=== PATIENT | male | born 1945 | race Caucasian/White ===

== ENCOUNTER → 2018-04-30 09:30 | Outpatient (CLI) | payer MEDICARE, SELFPAY | PROVIDERS: PCP Internal Medicine; Visit Provider Urology | DX: C67.9 Malignant neoplasm of bladder, unspecified (principal); C68.9 Malignant neoplasm of urinary organ, unspecified | CPT/HCPCS: 51720; 99212; J9031 ==

== ENCOUNTER → 2018-05-07 09:00 | Outpatient (CLI) | payer MEDICARE, SELFPAY | PROVIDERS: PCP Internal Medicine; Visit Provider Urology | DX: C67.9 Malignant neoplasm of bladder, unspecified (principal) | CPT/HCPCS: 51701; 51720; 81003; 99212 ==

== ENCOUNTER → 2018-07-02 09:31 | Outpatient (BNVA) | payer MEDICARE, SELFPAY | PROVIDERS: PCP Internal Medicine; Visit Provider Urology | DX: C67.9 Malignant neoplasm of bladder, unspecified (principal) | CPT/HCPCS: 52000; 99212; 99213 ==

== ENCOUNTER 2018-07-11 07:30 | Day surgery (SDC) | payer MEDICARE, SELFPAY ==
[2018-07-11 07:40] VITALS: BP 116/85; PULSE 50; RESP 16; TEMP 36.6; O2SAT 94
[2018-07-11] MEDS: Lactated Ringers 1,000 ML 80 ML IV (08:09)
[2018-07-11] MEDS: Lidocaine 2% Jelly 6 ML SYR (08:42)
--- NOTE | 2018-07-11 08:55 | BLADDER_PTH ---
PATIENT: Galo So V LOC: [facility] U#:[id number] AGE/SX: 73/M ROOM: RE07/11/[address]: Ronnell Bhandari MD : [id number] BED: DIS: 07/11/2018 SPEC #: [id number] RECD: 07/11/18 12:50 STATUS: ILENE REQ #: [id number] HOLLY: 07/11/18 08:[address]: Ronnell Bhandari DEPT: Surgical Specimen RECD BY: Chinyere Hinson ENTERED: 07/11/18 12:54 SP TYPE: Bladder OTHR DR: Brian Conklin Tissues: 1 - BLADDER BIOPSY Procedures: GROSS AND MICRO LEVEL 4 Comments: [id number]
--- NOTE | 2018-07-11 09:07 | W.PM.DSUDISC ---
Discharge Plan Disposition Patient Disposition: HOME Condition: Stable Discharge Details Reason For Visit: bladder cancer Attending Provider: Ronnell Bhandari Primary Care Provider: Brian Conklin Home Meds and New Rx's Prescriptions: No Action aspirin [Aspir-81] 81 mg Tablet,Delayed Release (Dr/Ec) 81 mg PO DAILY RF: 0 multivitamin Capsule 1 cap PO DAILY RF: 0 metoprolol tartrate 25 MG tablet 25 mg PO BID RF: 0 Discharge Instructions Additional Instructions: Leave dukes catheter clamped for 1 to 2 hours then drain Mitomycin C and remove catheter Unclamp catheter sooner prn severe pain F/U with me 1 to 2 weeks for pathology results Activity:: Activity as Tolerated Diet:: As Tolerated Discharge Orders Discharge Orders: Discharge Order (Routine); Ordered 07/11/18 Ordered By: Ronnell Bhandari DS: Diagnosis Discharge Diagnosis (1) Bladder cancer: Status: Acute
[2018-07-11 10:22] VITALS: BP 140/76; PULSE 53; RESP 16; TEMP 36; O2SAT 97
--- NOTE | 2018-07-11 12:12 | ROE_ITS ---
REPORT OF OPERATIVE PROCEDURE DATE OF PROCEDURE July 11, 2018 PREOPERATIVE DIAGNOSIS Bladder cancer. POSTOPERATIVE DIAGNOSIS Bladder cancer. PROCEDURES Cystoscopy. Bladder biopsies with fulguration of bladder tumor and biopsy site. Instillation of mitomycin C into the bladder. SURGEON Ronnell Bhandari M.D. ANESTHESIA Monitored Anesthesia Care with local. COMPLICATIONS None. ESTIMATED BLOOD LOSS Minimal. HISTORY This is a 73-year-old gentleman who has a history of urothelial cell carcinoma of the bladder. On his initial resection, there was questionable involvement of the lamina propria; he was treated with int ravesical BCG. He has had recurrences of noninvasive tumor. He recently had a surveillance cystoscopy , which demonstrated a total of 4 small papillary lesions toward the right dome of the bladder. He pr esents for biopsy of these areas, fulguration and instillation of mitomycin C. OPERATIVE REPORT The patient was brought to the Operating Room on 07/11/2018. After successful induction of Monitored Anesthesia Care, he was placed in the dorsal lithotomy position. His genitalia was prepped and drap ed. A #22-Mongolian rigid cystoscope was passed through the urethra into the bladder. The urethra and bladd er were inspected with the 30--degree lens. The pendulous, bulbous, and membranous urethras appeared normal with no strictures. The prostatic ure thra showed no papillary lesions along the mucosa. The bladder neck was then entered and the bladder mucosa was inspected, both ureteral orifices appear ed normal. No bleeding was seen coming from either orifice. A total of four, less than 2-cm papillary lesions were seen on the right anterior bladder wall up tow tom the dome. Each of these areas were biopsied with a cold cup biopsy forceps. The biopsies were the n sent to pathology for permanent section. We cauterized the biopsy sites using a bipolar Bugbee. Once hemostasis had been obtained, we drained the bladder and passed a #16-Mongolian Lee catheter through the urethra into the bladder. The cathete r balloon was inflated with 10 cc of sterile water. A total of 40 mg of mitomycin C was then instille d into the bladder. The catheter was clamped. We will plan on leaving the medication in the bladder f or one to two hours before draining it and removing the catheter. He tolerated this procedure well with no complications. His ultimate treatment will depend on his steve gical pathology.
== END 2018-07-11 11:02 | disposition home or self-care (01) ==
PROVIDERS: PCP Internal Medicine; Visit Provider Urology
PROC: 0TBB8ZX Excision of Bladder, Via Natural or Artificial Opening Endoscopic, Diagnostic (ICD-10-PCS; CPT 52204; principal; 2018-07-11 09:00)
DX: C67.3 Malignant neoplasm of anterior wall of bladder (principal)
CPT/HCPCS: 51720; 52204; 88305; J0690; J1100; J1885; J2250; J2405; J3010; J9280

== ENCOUNTER → 2018-07-22 08:44 | Outpatient (BNVA) | payer MEDICARE, SELFPAY | PROVIDERS: PCP Internal Medicine; Visit Provider Urology | DX: C67.1 Malignant neoplasm of dome of bladder (principal) | CPT/HCPCS: 99213 ==

== ENCOUNTER → 2018-08-09 08:55 | Outpatient (BNVA) | payer MEDICARE, SELFPAY | PROVIDERS: PCP Internal Medicine; Visit Provider Urology | DX: C67.1 Malignant neoplasm of dome of bladder (principal) | CPT/HCPCS: 51720; 81003; 99212; J9031; J9214 ==

== ENCOUNTER → 2018-08-19 08:14 | Outpatient (BNVA) | payer MEDICARE, SELFPAY | PROVIDERS: PCP Internal Medicine; Visit Provider Urology | DX: C67.1 Malignant neoplasm of dome of bladder (principal) | CPT/HCPCS: 51720; 81003; 99212; J9031; J9214 ==

== ENCOUNTER → 2018-08-27 10:47 | Outpatient (BNVA) | payer MEDICARE, SELFPAY | PROVIDERS: PCP Internal Medicine; Visit Provider Urology | DX: C67.1 Malignant neoplasm of dome of bladder (principal) | CPT/HCPCS: 51720; 81003; 99212; 99213; J9031; J9214 ==

== ENCOUNTER 2018-08-30 01:19 | Outpatient (CLI) | payer MEDICARE, SELFPAY ==
--- NOTE | 2018-08-30 08:31 | DI.US_ITS ---
SYMPTOMS/DIAGNOSIS: CHRONIC HEPATITIS W/O MENTION OF HEPATIC COMA, B18.2 ABDOMINAL ULTRASOUND: Comparison is 10/26/17. Comparison CT scan is 05/09/17. The aorta is ectatic, but no aneurysmal dilatation is present. The IVC is unremarkable. The liver is normal in size. There is again seen a 4 x 2 cm echogenic region in the subcapsular region of the right lobe of the liver inferiorly. This corresponds to a hepatic lesion seen on the CT scan from 05/09/17, the characteristics of which are suggestive of a hepatic hemangioma. The gallbladder is negative sonographically. The common bile duct is within normal limits at 0.5 cm. The pancreas is unremarkable. There is an echogenic focus in the spleen, consistent with a calcified granuloma. This was present on the CT scan of the abdomen and pelvis from 05/09/17. The kidneys are normal in size and there are bilateral renal cysts, which appear stable. No solid renal mass or obstruction is identified. IMPRESSION: 1. Stable echogenic hepatic lesion in the right lobe of the liver , suggestive of a hepatic hemangioma. 2. Bilateral renal cysts and splenic granuloma.
== END 2018-08-30 01:39 ==
PROVIDERS: PCP Internal Medicine; Visit Provider Internal Medicine
DX: B18.2 Chronic viral hepatitis C (principal); D18.03 Hemangioma of intra-abdominal structures; N28.1 Cyst of kidney, acquired
CPT/HCPCS: 76700

== ENCOUNTER → 2018-09-03 10:43 | Outpatient (BNVA) | payer MEDICARE, SELFPAY | PROVIDERS: PCP Internal Medicine; Visit Provider Urology | DX: C67.9 Malignant neoplasm of bladder, unspecified (principal) | CPT/HCPCS: 51720; 81003; 99212; 99213; J9031; J9214 ==

== ENCOUNTER → 2018-09-10 09:45 | Outpatient (BNVA) | payer MEDICARE, SELFPAY | PROVIDERS: PCP Internal Medicine; Visit Provider Urology | DX: C67.9 Malignant neoplasm of bladder, unspecified (principal) | CPT/HCPCS: 51720; 81003; 99212; 99213; J9031; J9214 ==

== ENCOUNTER → 2018-09-23 10:32 | Outpatient (BNVA) | payer MEDICARE, SELFPAY | PROVIDERS: PCP Internal Medicine; Visit Provider Urology | DX: C67.9 Malignant neoplasm of bladder, unspecified (principal) | CPT/HCPCS: 51720; 81003; 99212; J9031; J9214 ==

== ENCOUNTER → 2018-11-05 08:38 | Outpatient (BNVA) | payer MEDICARE, SELFPAY | PROVIDERS: PCP Internal Medicine; Visit Provider Urology | DX: C67.9 Malignant neoplasm of bladder, unspecified (principal) | CPT/HCPCS: 52000; 99212; 99213 ==

== ENCOUNTER 2018-11-11 09:32 | Day surgery (SDC) | payer MEDICARE, SELFPAY ==
[2018-11-11 10:49] VITALS: BP 137/89; PULSE 57; RESP 16; TEMP 36.4; O2SAT 96
--- NOTE | 2018-11-11 13:42 | NUR.NOTE ---
Addendum entered by Shraddha Coughlin 11/11/18 13:48: Pt. ambulated from [facility] accompanied by Mariela, aware that he will be contacted regarding time to return on Sunday, November 18. Original Note: 1125: Pt. elected to leave due to anticipated wait prior to procedure. Pt. states I dont want to come here on a Sunday, there is too much going on. Pt. states he was told to arrive at 10 AM and got here at 930AM and now is being informed he was not due until 11 AM. Pt. wanted nursing to find out how long it would be before his procedure. Giulia Beasley, clinical pharmacy manager, in to speak with pt. [facility] discussed, pt. decided to take first appt. next Sunday, not an unknown time later in November. Nursing Note:
== END 2018-11-11 11:25 ==
LOC: SUR 09:33
PROVIDERS: PCP Internal Medicine; Visit Provider Urology
DX: C67.9 Malignant neoplasm of bladder, unspecified (principal); Z53.29 Procedure and treatment not carried out because of patient's decision for other reasons; Y66 Nonadministration of surgical and medical care

== ENCOUNTER 2018-11-18 08:35 | Day surgery (SDC) | payer MEDICARE, SELFPAY ==
[2018-11-18 08:58] VITALS: BP 129/84; PULSE 50; RESP 18; TEMP 35.7; O2SAT 97
[2018-11-18] MEDS: Lactated Ringers 1,000 ML 80 ML IV (09:26)
[2018-11-18] MEDS: Lidocaine 2% Jelly 6 ML SYR (10:13)
--- NOTE | 2018-11-18 10:18 | BLADDER_PTH ---
PATIENT: Galo So V LOC: [facility] U#:[id number] AGE/SX: 73/M ROOM: RE11/18/[address]: Ronnell Bhandari MD : [id number] BED: DIS: 11/18/2018 SPEC #: [id number] RECD: 11/18/18 12:46 STATUS: ILENE REQ #: [id number] HOLLY: 11/18/18 10:[address]: Ronnell Bhandari DEPT: Surgical Specimen RECD BY: Chinyere Hinson ENTERED: 11/18/18 12:47 SP TYPE: Bladder OTHR DR: Brian Conklin Tissues: 1 - BLADDER BIOPSY Procedures: GROSS AND MICRO LEVEL 4 Comments: [id number]
--- NOTE | 2018-11-18 10:34 | W.PM.DSUDISC ---
Discharge Plan Disposition Patient Disposition: HOME Condition: Stable Discharge Details Reason For Visit: BLADDER CA Attending Provider: Ronnell Bhandari Primary Care Provider: Brian Conklin Home Meds and New Rx's Prescriptions: No Action phenazopyridine [Pyridium] 200 mg tablet 200 mg PO TID PRN (Reason: pain) Qty: 10 RF: 0 aspirin [Aspir-81] 81 mg Tablet,Delayed Release (Dr/Ec) 81 mg PO DAILY RF: 0 multivitamin Capsule 1 cap PO DAILY RF: 0 metoprolol tartrate 25 MG tablet 25 mg PO BID RF: 0 Discharge Instructions Additional Instructions: F/U 1 to 2 weeks for results - we will decide on addition treatment at that time Activity:: Activity as Tolerated Diet:: As Tolerated Discharge Orders Discharge Orders: Discharge Order (Routine); Ordered 11/18/18 Ordered By: Ronnell Bhandari
[2018-11-18] MEDS: Phenazopyridine 200 MG TAB PO (11:12)
[2018-11-18 11:13] VITALS: BP 124/84; PULSE 50; RESP 18; TEMP 35.4; O2SAT 94
[2018-11-18 11:45] VITALS: BP 135/83; PULSE 46; RESP 18; TEMP 35.7; O2SAT 98
--- NOTE | 2018-11-18 14:22 | ROE_ITS ---
DATE OF PROCEDURE: November 18, 2018 PREOPERATIVE DIAGNOSIS: Bladder tumor. POSTOPERATIVE DIAGNOSIS: Same. PROCEDURE: Cystoscopy, bladder biopsy with cauterization of biopsy site. SURGEON: Ronnell Bhandari M.D. ANESTHESIA: General with local. COMPLICATIONS: None. ESTIMATED BLOOD LOSS: Minimal. HISTORY: This is a 73-year-old gentleman who has a history of urothelial cell carcinoma of the bladd er. At his most recent surveillance cystoscopy, he was found to have a papillary lesion up towards t he dome on the bladder. This lesion measures less than a centimeter across. He presents today for r emoval of the lesion for pathology studies. OPERATIVE REPORT: The patient was brought to the Operating Room on 11/18/18. After successful induct ion of general anesthesia, he was placed in the dorsal lithotomy position. His genitalia was prepped and draped. 2% Xylocaine jelly was instilled into the urethra to act as a local anesthetic. A 22 Kazakh rigid cystoscope was passed through the urethra into the bladder. The urethra and bladde r were inspected with both the 30 and the 70-degree lens. The pendulous, bulbous and membranous urethras appeared normal. The prostatic urethra showed some la teral lobe enlargement. The bladder neck was entered. There was a scar on the left trigone from his previous resection site. No papillary lesions were see n in this area. The only visible lesion was up on the left posterior bladder wall near the dome. This lesion measure d less than a centimeter in largest dimension and appeared papillary. We were able to remove the lesion in its entirety using a cold cup biopsy forceps. We then cauterize d the underlying area with a bipolar Bugbee. The biopsy was sent to Pathology for permanent section. The patient tolerated this procedure well with no complications. His bladder was drained. His cysto scope was withdrawn. cc: Brian Conklin M.D.
== END 2018-11-18 12:02 | disposition home or self-care (01) ==
PROVIDERS: PCP Internal Medicine; Visit Provider Urology
PROC: 0TBB8ZZ Excision of Bladder, Via Natural or Artificial Opening Endoscopic (ICD-10-PCS; CPT 52234; principal; 2018-11-18 10:00)
DX: C67.1 Malignant neoplasm of dome of bladder (principal)
CPT/HCPCS: 52234; 88305; J0690

== ENCOUNTER → 2018-12-06 08:27 | Outpatient (BNVA) | payer MEDICARE, SELFPAY | PROVIDERS: PCP Internal Medicine; Visit Provider Urology | DX: C67.1 Malignant neoplasm of dome of bladder (principal); Z71.2 Person consulting for explanation of examination or test findings | CPT/HCPCS: 99213 ==

== ENCOUNTER 2018-12-11 12:31 | Outpatient (REF) | payer MEDICARE, SELFPAY ==
[2018-12-11 21:27] LABS: BUN 21 mg/dL (7-18)
== END 2018-12-11 12:51 ==
LOC: NCHCN 12:31
PROVIDERS: PCP Internal Medicine; Visit Provider Internal Medicine
DX: I10 Essential (primary) hypertension (principal); E78.00 Pure hypercholesterolemia, unspecified
CPT/HCPCS: 84520; 82565

== ENCOUNTER 2018-12-17 00:29 | Outpatient (CLI) | payer MEDICARE, SELFPAY ==
[2018-12-17] MEDS: Normal Saline Flush 10 ML SYR IVP (10:17)
[2018-12-17] MEDS: Omnipaque 350 MG/ML 100 ML BTL IJ (10:17)
--- NOTE | 2018-12-17 10:25 | DI.CT_ITS ---
SYMPTOMS/DIAGNOSIS: BLADDER CA, ? UPPER TRACT DISEASE, C67.[address]: CT examination of the abdomen and pelvis was performed utilizing CT urogram protocol. Images obtained through the lung bases show an approximately 6 mm in diameter well circumscribed left lower lobe laterally located intrapulmonary nodule, this is probably unchanged from CT of 05/09/17. Otherwise the lung bases are clear. Note is again made of multiple low attenuation peripherally enhancing hepatic lesions consistent with hepatic hemangiomas. Splenic calcified granulomas are noted. The pancreas is unremarkable in appearance. No biliary dilatation seen. The abdominal aorta is of normal diameter and no major vascular abnormality is identified. No significant abdominal wall hernia seen. No significant abdominal or pelvic adenopathy identified. There are multiple bilateral renal cysts with no solid renal lesion identified by CT criteria. No evidence of urinary tract obstruction or calcification. Mild bladder wall thickening is noted which is nonspecific. The appendix appears normal and there is no evidence of diverticulitis or bowel obstruction. CONCLUSION: Essentially negative CT urogram in a patient with a history of treated bladder carcinoma.
== END 2018-12-17 00:49 ==
PROVIDERS: PCP Internal Medicine; Visit Provider Urology
DX: C67.1 Malignant neoplasm of dome of bladder (principal); R91.1 Solitary pulmonary nodule; D18.03 Hemangioma of intra-abdominal structures
CPT/HCPCS: 36415; 51720; 81003; 99213; J9031; 74178; 82565; J3490; J9214

== ENCOUNTER → 2018-12-24 08:57 | Outpatient (BNVA) | payer MEDICARE, SELFPAY | PROVIDERS: PCP Internal Medicine; Visit Provider Urology | DX: C67.1 Malignant neoplasm of dome of bladder (principal); R30.0 Dysuria | CPT/HCPCS: 51720; 81003; 99212; J9031; J9214 ==

== ENCOUNTER → 2018-12-31 08:36 | Outpatient (BNVA) | payer MEDICARE, SELFPAY | PROVIDERS: PCP Internal Medicine; Visit Provider Urology | DX: C67.1 Malignant neoplasm of dome of bladder (principal) | CPT/HCPCS: 51720; 81003; 99212; J9031; J9214 ==

== ENCOUNTER → 2019-01-07 08:03 | Outpatient (BNVA) | payer MEDICARE, SELFPAY | PROVIDERS: PCP Internal Medicine; Visit Provider Urology | DX: C67.1 Malignant neoplasm of dome of bladder (principal) | CPT/HCPCS: 51720; 81003; 99212; J9031; J9214 ==

== ENCOUNTER → 2019-01-13 08:29 | Outpatient (BNVA) | payer MEDICARE, SELFPAY | PROVIDERS: PCP Internal Medicine; Visit Provider Urology | DX: C67.9 Malignant neoplasm of bladder, unspecified (principal); R30.0 Dysuria | CPT/HCPCS: 51720; 81003; 99213; J9031 ==

== ENCOUNTER → 2019-01-21 08:01 | Outpatient (BNVA) | payer MEDICARE, SELFPAY | PROVIDERS: PCP Internal Medicine; Visit Provider Urology | DX: C67.1 Malignant neoplasm of dome of bladder (principal) | CPT/HCPCS: 51720; 81003; 99212; J9214 ==

== ENCOUNTER 2019-01-23 08:02 | Outpatient (CLI) | payer MEDICARE, SELFPAY ==
--- NOTE | 2019-01-23 09:52 | DI.RAD_ITS ---
SYMPTOMS/DIAGNOSIS: CHEST WALL PAIN, R07.89, H/O BLADDER CA, Z85.51 CHEST AND LEFT RIBS: PA and lateral views of the chest and four additional views of the left ribs were obtained. A marker is placed over the anterolateral lower left ribs. There appear to be changes of COPD. No pleural effusion. No consolidation. No pneumothorax. The cardiac size is within normal limits. On single oblique view there is a question of nondisplaced fracture of the anterior most aspect of the left eighth rib. This corresponds to the BB marker placement. CONCLUSION: Question nondisplaced fracture anterior aspect of left eighth rib. No pneumothorax or hemothorax.
== END 2019-01-23 08:22 ==
PROVIDERS: PCP Internal Medicine; Visit Provider Internal Medicine
DX: R07.89 Other chest pain (principal); Z85.51 Personal history of malignant neoplasm of bladder; J44.9 Chronic obstructive pulmonary disease, unspecified; I48.0 Paroxysmal atrial fibrillation; R00.2 Palpitations
CPT/HCPCS: 71101; 99214

== ENCOUNTER 2019-01-23 11:26 | Outpatient (CLI) | payer MEDICARE, SELFPAY ==
--- NOTE | 2019-02-13 10:47 | ZIOP_ITS ---
ZIO PATCH MONITORING DEVICE DATE OF DICTATION February 13, 2019 INDICATION Paroxysmal atrial fibrillation. Analysis time - 13 days and 5 hours. Predominant underlying rhythm is sinus rhythm. Average heart rate 65 beats per minute. Minimum heart rate 37 beats per minute. Max heart rate 203 beats per minute. 2 bursts of SVT with the fastest lasting 5 beats with a max rate of 203 beats per minute. Intermittent episodes of ectopic atrial rhythm/atrial tachycardia. Isolated atrial ectopy was frequent accounting for 11.3% of total beats. No atrial fibrillation detected. Occasional isolated ventricular ectopy accounting for 4.1% of total beats. No nonsustained VT. No significant pauses or nick arrhythmias. 4 patient triggered events correspond to sinus rhythm with intermittent ectopic atrial rhythm. 2 diary entries of lightheadedness/dizziness correspond to sinus rhythm with frequent atrial ectopy and intermittent atrial tachycardia. Overall sinus rhythm with frequent intermittent ectopic atrial rhythm/atrial tachycardia. No atrial fibrillation detected. Marlo Romero M.D. ALIA/mayo T-02/13/19
== END 2019-01-23 11:46 ==
PROVIDERS: PCP Internal Medicine; Visit Provider Internal Medicine Cardiovascular Disease
DX: I48.92 Unspecified atrial flutter (principal); I47.1 Supraventricular tachycardia; I49.1 Atrial premature depolarization; R00.2 Palpitations; I48.0 Paroxysmal atrial fibrillation; R07.89 Other chest pain; Z85.51 Personal history of malignant neoplasm of bladder; J44.9 Chronic obstructive pulmonary disease, unspecified
CPT/HCPCS: 0296T; 71101; 99214; 93005; 93010

== ENCOUNTER 2019-02-13 08:31 | Outpatient (CLI) | payer MEDICARE, SELFPAY | END 2019-02-13 08:51 | PROVIDERS: PCP Internal Medicine; Referring Provider Internal Medicine; Visit Provider Internal Medicine Cardiovascular Disease | DX: I48.92 Unspecified atrial flutter (principal); I47.1 Supraventricular tachycardia; I49.1 Atrial premature depolarization | CPT/HCPCS: 0298T ==

== ENCOUNTER → 2019-03-04 09:01 | Outpatient (BNVA) | payer MEDICARE, SELFPAY | PROVIDERS: PCP Internal Medicine; Visit Provider Urology | DX: C67.1 Malignant neoplasm of dome of bladder (principal) | CPT/HCPCS: 52000; 99213 ==

== ENCOUNTER → 2019-04-15 13:37 | Outpatient (BNVA) | payer MEDICARE, SELFPAY | PROVIDERS: PCP Internal Medicine; Visit Provider Urology | DX: C67.1 Malignant neoplasm of dome of bladder | CPT/HCPCS: 51720; 81003; 99212; J9031; J9214 ==

== ENCOUNTER → 2019-04-22 08:40 | Outpatient (BNVA) | payer MEDICARE, SELFPAY | PROVIDERS: PCP Internal Medicine; Visit Provider Urology | DX: C67.1 Malignant neoplasm of dome of bladder (principal) | CPT/HCPCS: 51720; 81003; 99212; J9031; J9214 ==

== ENCOUNTER → 2019-05-01 09:18 | Outpatient (BNVA) | payer MEDICARE, SELFPAY | PROVIDERS: PCP Internal Medicine; Visit Provider Urology | DX: C67.9 Malignant neoplasm of bladder, unspecified (principal) | CPT/HCPCS: 51720; 81003; 99212; J9031; J9214 ==

== ENCOUNTER → 2019-05-08 09:02 | Outpatient (BNVA) | payer MEDICARE, SELFPAY | PROVIDERS: PCP Internal Medicine; Visit Provider Internal Medicine Cardiovascular Disease | DX: I47.1 Supraventricular tachycardia (principal); I48.0 Paroxysmal atrial fibrillation | CPT/HCPCS: 99213 ==

== ENCOUNTER → 2019-06-17 12:48 | Outpatient (BNVA) | payer MEDICARE, SELFPAY | PROVIDERS: PCP Internal Medicine; Visit Provider Urology | DX: C67.1 Malignant neoplasm of dome of bladder (principal) | CPT/HCPCS: 52000; 99212 ==

== ENCOUNTER 2019-06-30 10:13 | Outpatient (REF) | payer MEDICARE, SELFPAY ==
[2019-06-30 14:53] LABS: CREATININE 1.02 mg/dL (0.70-1.30)
== END 2019-06-30 10:33 ==
LOC: NCHCN 10:13
PROVIDERS: PCP Internal Medicine; Visit Provider Internal Medicine
DX: Z13.89 Encounter for screening for other disorder (principal); Z01.812 Encounter for preprocedural laboratory examination; R69 Illness, unspecified
CPT/HCPCS: 82565

== ENCOUNTER 2019-07-02 01:24 | Outpatient (CLI) | payer MEDICARE, SELFPAY ==
--- NOTE | 2019-07-02 14:50 | DI.CT_ITS ---
EXAM: CT CHEST W CLINICAL HISTORY: PULMONARY NODULE LT LOWER LOBE, R91.1. TECHNIQUE: After IV contrast COMPARISON: CT ABDOMEN PELVIS WO/W from 12/17/2018 XR ribs LT PA chest 3V from 01/23/2019 XR ribs LT PA chest 3V from 01/23/2019 FINDINGS: The exam is mildly limited by respiratory motion. The heart size is normal. There are atherosclero tic changes at the aortic arch. There is no aortic aneurysm or dissection. Coronary artery calcific ations are seen. Emphysematous changes are seen at the lung apices. There is also scarring at the lung apices, right greater than left. The nodule seen on the previous CT scan at the lateral left arslan ng base is unchanged in size at 6 millimeters. No pleural or pericardial effusions or infiltrates are seen. There is no evidence of adenopathy. Liver lesions consistent with hemangiomas are again noted. There are bilateral renal cysts. No susp icious bony abnormalities are seen. IMPRESSION: Stable 6 millimeter nodule at the left lung base.
== END 2019-07-02 01:44 ==
PROVIDERS: PCP Internal Medicine; Visit Provider Internal Medicine
DX: R91.1 Solitary pulmonary nodule (principal); J98.4 Other disorders of lung
CPT/HCPCS: 71260

== ENCOUNTER 2019-07-10 00:37 | Outpatient (CLI) | payer MEDICARE, SELFPAY ==
--- NOTE | 2019-07-10 13:23 | DI.US_ITS ---
EXAM: US HERNIA CLINICAL HISTORY: RT INGUINAL HERNIA, K40.90 TECHNIQUE: Ultrasound performed using standard protocol. COMPARISON: CT ABDOMEN PELVIS WO/W from 12/17/2018 FINDINGS: Bowel is seen herniating into the right inguinal canal which is reducible. No mass or fluid collect ion is seen. IMPRESSION: Reducible small right inguinal hernia.
== END 2019-07-10 00:57 ==
PROVIDERS: PCP Internal Medicine; Visit Provider Specialist/Technologist Athletic Trainer
DX: K40.90 Unilateral inguinal hernia, without obstruction or gangrene, not specified as recurrent (principal)
CPT/HCPCS: 76857

== ENCOUNTER → 2019-07-17 12:44 | Outpatient (BNVA) | payer MEDICARE, SELFPAY | PROVIDERS: PCP Internal Medicine; Referring Provider Internal Medicine; Visit Provider Surgery | DX: K40.90 Unilateral inguinal hernia, without obstruction or gangrene, not specified as recurrent (principal) | CPT/HCPCS: 99204; 99215 ==

== ENCOUNTER 2019-07-22 08:46 | Day surgery (SDC) | payer MEDICARE, SELFPAY ==
[2019-07-22 09:16] VITALS: BP 135/75; PULSE 48; RESP 16; TEMP 36.3; O2SAT 97
[2019-07-22] MEDS: Lactated Ringers 1,000 ML 80 ML IV (09:33)
--- NOTE | 2019-07-22 10:51 | PDOC.DSDIS_ITS ---
Discharge Plan Disposition Patient Disposition: HOME Condition: Good Discharge Details Reason For Visit: (R) INGUINAL HERNIA Attending Provider: Pattie Hannah Primary Care Provider: Brian Conklin Home Meds and New Rx's Prescriptions: New hydrocodone-acetaminophen 5-325 mg Tablet 1 - 2 tab PO Q6H PRN (Reason: Pain) Qty: 15 RF: 0 Continued cannabidiol (CBD) extract 100 mg/mL solution PO PRNRF: 0 multivitamin,tx-minerals Tablet 1 tab PO DAILY RF: 0 metoprolol succinate 25 mg tablet extended release 24 hr 25 mg PO BID RF: 0 aspirin [Aspir-81] 81 mg Tablet,Delayed Release (Dr/Ec) 81 mg PO DAILY RF: 0 Discharge Instructions Additional Instructions: The top bandage can be removed tomorrow. The steri strips will usually stick for about a week. When the edges start to curl up, they can be removed. It is okay to shower tomorrow, the water can run over the steri strips Do not swim or soak in a tub for two weeks Call for any concerns including fever, increased pain, vomiting, incision redness or drainage. Do not lift more than 15 pounds for four weeks. Walking and stairs are fine. Do not drive if on narcotic pain meds or if limited by pain. May use Tylenol alternating with ibuprofen for pain control. Ice is also an option. The maximum dose for Tylenol is 4000 mg/day. May use ibuprofen 800 mg every 8 hours as needed. If concerned about constipation, you may use a stool softener or milk of magnesi a. Referrals: Pattie Hannah MD [ [facility] STAFF PHYSICIAN] - (Return in 10 - 14 days for a postop visit) Activity:: Do not lift more than 15 pounds Remove Dressings/Wound Care:: 24 hours Shower/Bathe:: 24 hours Diet:: As Tolerated Discharge Orders Discharge Orders: Discharge Order (Routine); Ordered 07/22/19 Ordered By: Pattie Hannah DS: Diagnosis Discharge Diagnosis (1) Right inguinal hernia: Status: Acute
[2019-07-22] MEDS: ceFAZolin 2 GM/50 ML BAG IVPB (11:24)
[2019-07-22] MEDS: Bupivacaine 0.25% Pres-Free 30 ML VIAL (11:32)
[2019-07-22] MEDS: Bupivacaine LIPOSOME/PF 133 MG/10 ML VIAL IJ (12:35)
[2019-07-22 13:10] VITALS: PULSE 47; RESP 14; O2SAT 97
[2019-07-22 13:29] VITALS: BP 164/84; PULSE 47; RESP 16; TEMP 36.3; O2SAT 99
--- NOTE | 2019-07-22 16:32 | ROE_ITS ---
DATE OF PROCEDURE: July 22, 2019 PREOPERATIVE DIAGNOSIS: Right inguinal hernia. POSTOPERATIVE DIAGNOSIS: Right direct and indirect inguinal hernia. PROCEDURE: Right inguinal hernia repair with mesh. SURGEON: Pattie Hannah M.D. INSURANCE PROFESSIONAL: Cornelia Carlos ANESTHESIA: Local and general. INDICATIONS: This is a 74-year-old man who recently noted right groin pain with a visible bulge. On examination he has a reducible moderate-sized right inguinal hernia. PROCEDURE: The patient was placed supine on the operating table and his right groin was prepped and draped sterilely. The ASIS and pubic tubercle were identified and a transverse incision made between these two points after injecting local anesthetic. Subcutaneous tissue was divided with cautery. Any encountered veins were clamped, divided and ligated with #3-0 Vicryl ties. Local anesthetic was injected underneath the external oblique fascia and then a small incision made with a knife. This was extended bluntly through the external ring and laterally as well. The spermatic cord was encircled at the level of the pubic tubercle with a Dipak drain. I did identify and avoid the iliohypogastric nerve. The patient was noted to have a small direct hernia. The transversus abdominis muscle was reapproximated with interrupted #2-0 Prolene stitches to keep the hernia reduced. I then examined the spermatic cord and identified a moderate-sized inguinal hernia. The sac was dissected free of the spermatic cord up to the level of the internal ring. The sac was opened and then suture ligated at its base with a #2-0 silk stitch. The excess sac was amputated. The amputated portion retracted nicely up into the abdomen. A small mesh plug was sutured into the internal ring with interrupted #2-0 Prolene stitches and then a flat sheet of mesh placed on the floor of the inguinal canal in standard Alireza fashion. This was done using a #2-0 Prolene stitch. The external oblique fascia was closed with #3-0 Vicryl sutures. I used 20 cc's of Exparel at this point and injected 1 cc intermittently starting at the pubic tubercle and extending upwards into the plane where the cutaneous nerves traveled. The subcutaneous tissue was reapproximated with interrupted #3-0 Vicryl sutures and then the skin closed with a running #4-0 Monocryl subcuticular stitch. He tolerated the procedure well and was stable to recovery. cc: Brian Conklin M.D.
== END 2019-07-22 14:03 | disposition home or self-care (01) ==
PROVIDERS: PCP Internal Medicine; Visit Provider Surgery
PROC: (CPT 49505; principal; 2019-07-22 10:45)
DX: K40.90 Unilateral inguinal hernia, without obstruction or gangrene, not specified as recurrent (principal); I10 Essential (primary) hypertension
CPT/HCPCS: 49505; C1781; J0690; J2001; J2250; J3010

== ENCOUNTER → 2019-08-07 09:15 | Outpatient (BNVA) | payer MEDICARE, SELFPAY | PROVIDERS: PCP Internal Medicine; Referring Provider Internal Medicine; Visit Provider Surgery | DX: Z48.89 Encounter for other specified surgical aftercare (principal) ==

== ENCOUNTER 2019-09-18 09:16 | Outpatient (CLI) | payer MEDICARE, SELFPAY | END 2019-09-18 09:36 | PROVIDERS: PCP Internal Medicine; Visit Provider Internal Medicine Cardiovascular Disease | DX: I48.0 Paroxysmal atrial fibrillation (principal); I47.1 Supraventricular tachycardia; I10 Essential (primary) hypertension | CPT/HCPCS: 99203; 99214; 93005; 93010 ==

== ENCOUNTER → 2019-09-26 09:21 | Outpatient (BNVA) | payer MEDICARE, SELFPAY | PROVIDERS: PCP Internal Medicine; Referring Provider Internal Medicine; Visit Provider Urology | DX: C67.1 Malignant neoplasm of dome of bladder (principal) | CPT/HCPCS: 52000; 99212 ==

== ENCOUNTER → 2019-10-24 08:40 | Outpatient (BNVA) | payer MEDICARE, SELFPAY | PROVIDERS: PCP Internal Medicine; Referring Provider Internal Medicine; Visit Provider Internal Medicine Cardiovascular Disease | DX: I47.1 Supraventricular tachycardia (principal); I10 Essential (primary) hypertension; R01.1 Cardiac murmur, unspecified | CPT/HCPCS: 99214 ==

== ENCOUNTER 2019-10-27 10:07 | Outpatient (REF) | payer MEDICARE, SELFPAY ==
[2019-10-27 12:22] LABS: HCT 44.3 % (40.0-50.0); HGB 14.6 g/dL (13.5-17.5); Mean Corpuscular Hemoglobin 27.8 pg (27.0-33.0); Mean Corpuscular Volume 84.2 fL (80-95); Mean Platelet Volume 10.4 fL (8.0-11.0); Platelet Count 283 x1000/uL (130-400); RBC 5.26 m/cumm (4.50-6.00); RBC Distribution Width 13.8 % (11.8-14.1); White Blood Cell Count 6.62 k/cumm (4.4-10.8)
[2019-10-27 12:53] LABS: ALT 30 U/L (16-63); AST 25 U/L (15-37); Albumin 4.2 g/dL (3.4-5.0); Alkaline Phosphatase 36 U/L (46-116); Anion Gap 7.2 mmol/L (3-11); BUN 24 mg/dL (7-18); Bilirubin, Total 0.5 mg/dL (0.2-1.0); CO2 28.8 mmol/L (21.0-32.0); CREATININE 1.06 mg/dL (0.70-1.30); Calcium 9.2 mg/dL (8.5-10.1); Chloride 105 mmol/L (98-107); Glucose 98 mg/dL (74-106); Lipase 100 U/L (73-393); Potassium 4.8 mmol/L (3.5-5.1); Sodium 141 mmol/L (136-145); TSH (W/Ref FT4) 1.76 uIU/mL (0.36-3.74)
== END 2019-10-27 10:27 ==
LOC: NCHCN 10:07
PROVIDERS: PCP Internal Medicine; Visit Provider Internal Medicine
DX: R63.4 Abnormal weight loss (principal); R10.9 Unspecified abdominal pain; R53.83 Other fatigue
CPT/HCPCS: 80053; 83690; 85027; 84443

== ENCOUNTER 2019-11-07 03:48 | Outpatient (CLI) | payer MEDICARE, SELFPAY ==
--- NOTE | 2019-11-07 | DI.US_ITS ---
EXAM: US ABDOMEN CLINICAL HISTORY: ABD PAIN, WT LOSS, CHRONIC HEP C W/O MENTION OF HEPATIC COMA, R10.9, R63.4, B18.2 TECHNIQUE: Ultrasound abdomen performed using standard protocol. COMPARISON: US ABDOMEN from 08/30/2018 CT ABDOMEN PELVIS WO/W from 12/17/2018 US HERNIA from 07/10/2019 FINDINGS: LIVER: There is a 3.8 x 3.2 x 3.1 cm mass in the inferior aspect of the right lobe of the liver. This corresponds to the finding seen on the CT scan and prior ultrasounds consistent with a hepatic heman gioma. Liver is normal in size. There is hepatopetal flow through the portal vein. GALLBLADDER: No evidence of cholelithiasis. No evidence of wall thickening. No pericholecystic fluid identified. KIDNEYS: Kidneys are symmetric in size. No evidence of renal calculi. No evidence of hydronephrosis. Bilateral simple renal cysts. BILIARY SYSTEM: Common bile duct measures 5 mm. No intrahepatic biliary ductal dilation. SRIVASTAVA'S SIGN: Negative. PANCREAS: Normal where visualized. SPLEEN: Not enlarged. ABDOMINAL AORTA AND IVC: Visualized portions normal caliber. ASCITES: None seen. IMPRESSION: 1. Stable hepatic lesion in the inferior aspect of the right lobe. Finding is most consistent with a hepatic hemangioma. 2. Bilateral simple renal cysts.
== END 2019-11-07 04:08 ==
PROVIDERS: PCP Internal Medicine; Visit Provider Internal Medicine
DX: M10.9 Gout, unspecified (principal); R63.4 Abnormal weight loss; B18.2 Chronic viral hepatitis C; N28.1 Cyst of kidney, acquired; D18.03 Hemangioma of intra-abdominal structures
CPT/HCPCS: 51720; 81003; 99212; J9201; 76700

== ENCOUNTER 2019-11-16 01:31 | Outpatient (CLI) | payer MEDICARE, SELFPAY ==
--- NOTE | 2019-11-16 10:30 | DI.US_ITS ---
APPROVED REPORT EXAM: Comprehensive 2D, Doppler, and color-flow Echocardiogram Patient Location: Out-Patient Milk Processing Worker: Carlie Boston RDCS (AE) Indications: Tachycardia,Dyspnea Conclusion Left Ventricle : The left ventricle is normal size. The left ventricular systolic function is normal . There is normal left ventricular wall thickness. There is normal LV segmental wall motion. Diasto lic function is indeterminate. LVEF is 55-59%. Right Ventricle : The right ventricle is normal size. The right ventricular systolic function is norm al. Atria : The left atrium size is normal. The right atrium size is normal. Aortic Valve : Aortic valve is calcified. Aortic valve is probably trileaflet. Mild aortic stenosis. Mild aortic regurgitation. Mitral Valve : The mitral valve is normal in structure. There is mitral annular calcification. No loree dence of mitral valve stenosis. Mild mitral regurgitation. Tricuspid Valve : The tricuspid valve is normal in structure. Mild tricuspid regurgitation. Great Vessels : IVC is normal in size and collapses >50% with inspiration. Estimated RVSP is 20-25 m mHg. There is no prior echocardiogram available for comparison. Wall motion Left Ventricle The left ventricle is normal size. The left ventricular systolic function is normal. There is normal left ventricular wall thickness. There is normal LV segmental wall motion. Diastolic function is inde terminate. LVEF is 55-59%. Right Ventricle The right ventricle is normal size. The right ventricular systolic function is normal. Atria The left atrium size is normal. The right atrium size is normal. Aortic Valve Aortic valve is calcified. Aortic valve is probably trileaflet. Mild aortic stenosis. Mild aortic reg urgitation. Mitral Valve The mitral valve is normal in structure. There is mitral annular calcification. No evidence of mitral valve stenosis. Mild mitral regurgitation. Tricuspid Valve The tricuspid valve is normal in structure. Mild tricuspid regurgitation. Pulmonic Valve Pulmonic valve is not well visualized. There is no pulmonic valvular stenosis. Trace pulmonic regurgi tation. Great Vessels The aortic root is normal in size. The ascending aorta is normal in size. IVC is normal in size and c ollapses >50% with inspiration. Estimated RVSP is 20-25 mmHg. Pericardium There is no pericardial effusion. 2D Dimensions IVSD d PLAX 0.94 cm M: 0.6-1.2 LV Vol A2C d MOD 126.4 mL LVPW d PLAX 0.99 cm M: 0.6 - 1.2 LV Vol A4C d MOD 88.0 mL LVID d PLAX 4.85 cm M: 4.2 - 5.8 LA vol/ BSA A2C s A-L 43.8 mL/m2 LVDs 3.35 cm M: 2.5 - 4.0 LA vol/ BSA A4C s A-L 36.1 mL/m2 Ao Root d 3.42 cm M: 3.1 - 3.7 LA Vol/ BSA Biplane s A-L 41.1 mL/m2 Ao Asc Diam d 2.89 cm M: 2.6 - 3.4 LA Area A4C s MOD 20.72 cm2 LV EF Teichholz 57.1 % LA Area A2C s MOD 23.55 cm2 LVEF (Casey's) 55.39 % M: 52 - 72 LV EF A4C MOD 56.4 % LV Volume 83.28 mL M: 62 - 150 LV EF A2C MOD 57.0 % LV Volume Index 48.13 mL/m2 M: 34 - 74 LV EF Biplane MOD 55.4 % LV Vol Biplane MOD 105.7 mL FS 29.95 % LV Diastology MV E' medial 0.042 (>0.07 m/s) E/A Ratio 1.3 LV E/e MED 20.05 (<14) MV E Vmax 0.84 (0.4-1.3 m/s) MV E' lateral 0.095 (>0.1 m/s) MV A Vmax 0.65 (0.4-1.3 m/s) LV E/e LAT 8.85 (<14) MV E/A Ratio 1.22 MV E/E' medial 20.06 MV E/E' lateral 8.89 Aortic Valve LVOT Area 2.41 cm2 AoV Area Vmax 1.10 cm2 LVOT Vmax 1.19 m/s AoV Area/ BSA (Vmax) 0.63 cm2/m2 LVOT Mean Silvino. 0.77 m/s EDION Mean Silvino. 1.01 cm2 LVOT Peak Grad 5.6 mmHg DEION Mean Silvino. Index 0.58 cm2/m2 LVOT Mean Grad 2.8 mmHg AR DT 2968 msec LVOT VTI 0.305 m AR PHT 861 msec LVOT Diam s 1.75 cm (M/F) 1.5-2.5 AoV Vmax 2.59 (0.5-1.3 m/s) Velocity Ratio 0.45 AoV Mean Silvino. 1.83 m/s AoV Peak Grad 26.9 mmHg LVOT SV 73.49 mL AoV Mean Grad 14.8 (<5 mmHg) AoV VTI 0.568 (0.18-0.25 m) AoV Area VTI 1.29 (2.5-4.5 cm2) AoV Area/ BSA (VTI) 0.74 cm/m2 Mitral Valve MV DT 263 (160-240 msec) MR Vmax 5.20 m/s MV PHT 76 msec MR VTI 2.163 m MV Area PHT 2.88 cm2 MR Peak Grad 108.3 mmHg MV VTI 0.348 m MR Mean Grad 74.8 mmHg MV Area VTI 2.11 (4.0-6.0 cm2) Pulmonary Valve PV Vmax 1.12 (0.5-1.5 m/s) PV Peak Grad 5.1 mmHg PV Mean Grad 2.8 mmHg PV VTI 0.207 m Tricuspid Valve TR Peak Grad 20.5 mmHg TR Vmax 2.27 m/s RA Pressure 3.00 mmHg
== END 2019-11-16 01:51 ==
PROVIDERS: PCP Internal Medicine; Visit Provider Internal Medicine Cardiovascular Disease
DX: R00.0 Tachycardia, unspecified (principal); R06.00 Dyspnea, unspecified; I08.3 Combined rheumatic disorders of mitral, aortic and tricuspid valves
CPT/HCPCS: 93306

== ENCOUNTER 2019-11-17 00:14 | Outpatient (CLI) | payer MEDICARE, SELFPAY ==
--- NOTE | 2019-11-17 12:45 | ETT_ITS ---
APPROVED REPORT Exam: Exercise Treadmill Patient Location: Out-Patient Room/Bed: Stress Nurse: Haven Chavez RN BMI: 19.08 Baseline Rhythm: Sinus Bradycardia Indications: Other dyspnea. Other fatigue. Medical History Medical History: HTN, Hyperlipidemia Cardiac Medications: Metoprololol. Aspirin., Allergies: Doxycyline Cardiac Risk Factors: HTN, Hyperlipidemia, Smoking marijuanna, SOB Pretest Chest Pain Characteristics: Dyspnea Exercise History: Physically active Lung Sounds: Clear to auscultation Heart Sounds: Murmur Stress Test Details Test: Exercise stress testing was performed using a Dieter protocol. Rest Stress HR Resting HR Supine: 54 bpm Max Heart Rate (APMHR): 145 bpm Resting HR Standin bpm Target HR (85% APMHR): 123 bpm Max HR Achieved: 152 bpm % of APMHR: 104 Recovery HR: 72 bpm BP Resting BP Supine: 182/84 mmHg Resting BP Standin/80 mmHg Max BP: 184/100 mmHg Recovery BP: 144/62 mmHg BP response to stress: Normal blood pressure response to stress. ECG Resting ECG: Sinus Bradycardia Stress ECG: Sinus Tachycardia ST Change: No significant ST segment changes Recovery ECG: Sinus Rhythm Recovery ST Change: No significant ST segment changes Recovery Arrhythmia: APC Comment: Frequent APCs at recovery, subsided by 10 minutes recovery time. Clinical Reason for Termination: 104 % of Target HR Achieved Exercise duration: 4 min01 sec Highest Stage Reached: Stage 1: 1.7 mph at 10% grade. Exercise capacity: 5.84 METs Functional Capacity: Moderately diminished capacity Scale: Active Stress ECG Conclusion 1. The patient exercised for 4 minutes (6 METS) 2. There were no symptoms of ischemia with stress. Testing was stopped due to target heart rate bein g achieved. Rate-pressure product was 25,000. 3. There is no evidence of ischemia on the ECG portion of the exam. There were frequent premature at rial contractions during recovery. 4. The Graves Score ( 4) estimates an annual cardiovascular mortality of 1% and a five year survival of 94%. Using the Graves Score there is an intermediate probability of angiographic coronary disease. Protocol Used: Dieter Protocol Stress Test Summary STAGE Time (mins) Speed (mph) Grade (%) HR BP SYMPTOMS METS Supine 54 182/84 Standing 57 170/80 1 3 1.7 10 130 166/78 4.6 2 6 2.5 12 141 7 1 min recovery 141 184/100 3 min recovery 72 170/80 6 min recovery 96 144/62 9 min recovery 66 140/82
== END 2019-11-17 00:34 ==
PROVIDERS: PCP Internal Medicine; Visit Provider Internal Medicine Cardiovascular Disease
DX: R06.09 Other forms of dyspnea (principal); R53.83 Other fatigue; I10 Essential (primary) hypertension; E78.5 Hyperlipidemia, unspecified; R06.02 Shortness of breath
CPT/HCPCS: 93016; 93018; 93017

== ENCOUNTER → 2019-12-26 10:14 | Outpatient (BNVA) | payer MEDICARE, SELFPAY | PROVIDERS: PCP Internal Medicine; Referring Provider Internal Medicine; Visit Provider Urology | DX: C67.1 Malignant neoplasm of dome of bladder (principal) | CPT/HCPCS: 52000; 81003; 99212 ==

== ENCOUNTER 2019-12-26 10:48 | Outpatient (REF) | payer MEDICARE, SELFPAY ==
--- NOTE | 2019-12-26 10:30 | PAPNONF_PTH ---
PATIENT: Galo So V LOC: [facility] U#:[id number] AGE/SX: 74/M ROOM: RE12/26/[address]: Ronnell Bhandari MD : 1945 BED: DIS: 12/26/2019 SPEC #: [id number] RECD: 12/26/19 12:45 STATUS: ILENE REQ #: [id number] HOLLY: 12/26/19 10:[address]: Ronnell Bhandari DEPT: [facility] Cytology RECD BY: Chinyere Hinson ENTERED: 12/26/19 12:45 SP TYPE: PAPJENNF SAVANNAH DR: Brian Conklin Tissues: 1 - BODY FLUID CYTO(SPUTUM/URINE)[facility] Procedures: BODY FLUID CYTO(URINE/SPUTUM) Comments: [id number] (TOTAL VOLUME = 60 ml's) (30 ml's URINE & 30 ml's CYTOLYT ADDED IN 2 CONTAINERS)
== END 2019-12-26 11:08 ==
LOC: LBN 10:48
PROVIDERS: PCP Internal Medicine; Visit Provider Urology
DX: R82.89 Other abnormal findings on cytological and histological examination of urine (principal); R35.0 Frequency of micturition; Z85.51 Personal history of malignant neoplasm of bladder
CPT/HCPCS: 88104

== ENCOUNTER → 2020-02-13 14:05 | Outpatient (BNVA) | payer MEDICARE, SELFPAY | PROVIDERS: PCP Internal Medicine; Referring Provider Internal Medicine; Visit Provider Urology | DX: C67.1 Malignant neoplasm of dome of bladder (principal); R35.0 Frequency of micturition | CPT/HCPCS: 51720; 81003; 99213; J9201 ==

== ENCOUNTER → 2020-04-06 10:50 | Outpatient (BNVA) | payer MEDICARE, SELFPAY | PROVIDERS: PCP Internal Medicine; Referring Provider Internal Medicine; Visit Provider Urology | DX: C67.1 Malignant neoplasm of dome of bladder (principal) | CPT/HCPCS: 52000; 99213 ==

== ENCOUNTER → 2020-04-08 10:00 | Outpatient (BNVA) | payer MEDICARE, SELFPAY | PROVIDERS: PCP Internal Medicine; Referring Provider Internal Medicine; Visit Provider Nurse Practitioner Adult Health | DX: G56.01 Carpal tunnel syndrome, right upper limb (principal); G56.21 Lesion of ulnar nerve, right upper limb | CPT/HCPCS: 95908; 99203; 99214 ==

== ENCOUNTER → 2020-04-15 09:35 | Outpatient (BNVA) | payer MEDICARE, SELFPAY | PROVIDERS: PCP Internal Medicine; Referring Provider Internal Medicine; Visit Provider Internal Medicine Cardiovascular Disease | DX: I48.0 Paroxysmal atrial fibrillation (principal); I08.0 Rheumatic disorders of both mitral and aortic valves; R01.1 Cardiac murmur, unspecified; I10 Essential (primary) hypertension | CPT/HCPCS: 99214 ==

== ENCOUNTER → 2020-05-18 13:42 | Outpatient (BNVA) | payer MEDICARE, SELFPAY | PROVIDERS: PCP Internal Medicine; Referring Provider Internal Medicine; Visit Provider Urology | DX: C67.1 Malignant neoplasm of dome of bladder (principal); I10 Essential (primary) hypertension | CPT/HCPCS: 51720; 81003; 99213; J9214 ==

== ENCOUNTER → 2020-08-03 10:31 | Outpatient (BNVA) | payer MEDICARE, SELFPAY | PROVIDERS: PCP Internal Medicine; Referring Provider Internal Medicine; Visit Provider Urology | DX: C67.1 Malignant neoplasm of dome of bladder (principal); I10 Essential (primary) hypertension | CPT/HCPCS: 52000; 81003; 99213 ==

== ENCOUNTER 2020-08-26 02:26 | Outpatient (CLI) | payer MEDICARE, SELFPAY ==
[2020-08-28 16:36] LABS: COVID-19 RT-PCR Result NEGATIVE (Negative)
== END 2020-08-26 02:46 ==
PROVIDERS: PCP Internal Medicine; Visit Provider Urology
DX: Z11.59 Encounter for screening for other viral diseases (principal); Z01.818 Encounter for other preprocedural examination
CPT/HCPCS: U0003

== ENCOUNTER 2020-08-30 10:26 | Day surgery (SDC) | payer MEDICARE, SELFPAY ==
--- NOTE | 2020-08-30 07:54 | W.PM.HP.N ---
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 He has had bladder instillations with BCG plus alpha interferon. His most recent surveillance cystoscopy showed a small recurrance. He presents for cystoscopy with TURBT. Review of Systems Narrative: No fevers or chills No vision change or dysphasia No diabetes or thyroid No shortness of breath, cough or hemoptysis No chest pain or palpitations No nausea, vomiting, hepatitis, ulcers, jaundice, diarrhea or constipation No seizures, strokes or peripheral neuropathy No bleeding disorders or anemia No gout PFSH Medical History (Updated 08/30/20 @ 10:49 by Shraddha Coughlin) Abdominal pain in male Anxiety with depression Atrial ectopic tachycardia Bladder cancer Chronic hepatitis C pt. denies this stated he had it treated 5 years ago, and is no longer detectable. Cubital tunnel syndrome on right Degenerative joint disease Ear deformity, acquired Fatigue History of degenerative joint disease Hx of bladder cancer Hx of supraventricular tachycardia Hypercholesterolemia Hypertension Left lower lobe pulmonary nodule pt. questions this Paroxysmal A-fib 07/22/19: Pt denies dx. -BR Pulmonary nodule Right carpal tunnel syndrome Shoulder pain Weight loss Surgical History H/O transurethral destruction of bladder lesion History of colonoscopy History of tonsillectomy S/P right inguinal hernia repair Social History Smoking/Tobacco Use Status: Former Tobacco Use Quit Date: 09/24/79 Smoking risk assessment performed?: Yes Alcohol Intake: current Alcohol type: beer Drug use: Daily Substance use type: marijuana Details: no alcohol for 4 months. Marijuana: t-1, vaped Current gender identity: male What type of physical activity do you participate in: walking Duration: 15-30 minutes/day Frequency: 3-4 times per week Do you feel safe at home: Yes Do you feel safe in your relationship?: Yes Meds Home Medications and Allergies Home Medications Medication Instructions Recorded Confirmed Type aspirin [Aspir-81] 81 mg PO DAILY 07/08/18 08/30/20 History cannabidiol 100 mg/mL oral solution 60 mg PO DAILY ml 01/23/19 08/30/20 History multivitamin,tx-minerals 1 tab PO DAILY 07/09/19 08/30/20 History metoprolol succinate 25 mg 25 mg PO BID tab 09/18/19 08/30/20 History tablet,extended release 24 hr sertraline 50 mg tablet 50 mg PO DAILY 10/24/19 08/30/20 History Allergies Allergy/AdvReac Type Severity Reaction Status Date / Time doxycycline AdvReac Intermediate Nausea Verified 08/30/20 10:45 Exam Const General: cooperative, healthy appearing and no acute distress Neck Neck: supple Resp Auscultation: clear to auscultation bilaterally Cardio Rate: regular rate Rhythm: regular rhythm GI Palpation: soft and no masses Neuro General: patient alert and patient oriented x3 COVID-19 Screening Have you, or household traveled for leisure in last 14 days?: No Had IN PERSON contact w/suspected or confirmed C-19 person: No
[2020-08-30 10:51] VITALS: BP 142/102; PULSE 87; RESP 16; TEMP 35.9; O2SAT 97
[2020-08-30] MEDS: Lactated Ringers 1,000 ML 80 ML IV (11:10)
[2020-08-30] MEDS: ceFAZolin 1 GM/50 ML BAG IVPB (15:21)
[2020-08-30] MEDS: Lidocaine 2% Jelly 6 ML SYR (15:30)
--- NOTE | 2020-08-30 15:45 | BLADDER_PTH ---
PATIENT: Galo So V LOC: [facility] U#:[id number] AGE/SX: 75/M ROOM: RE08/30/[address]: Ronnell Bhandari MD : 1945 BED: DIS: 08/30/2020 SPEC #: [id number] RECD: 08/30/20 18:17 STATUS: ILENE REQ #: [id number] HOLLY: 08/30/20 15:[address]: Ronnell Bhandari DEPT: Surgical Specimen RECD BY: Chinyere Hinson ENTERED: 08/30/20 18:18 SP TYPE: Bladder OTHR DR: Brian Conklin Tissues: 1 - BLADDER BIOPSY Procedures: GROSS AND MICRO LEVEL 4 Comments: [id number]
--- NOTE | 2020-08-30 15:47 | W.PM.DSUDISC ---
Discharge Plan Disposition Patient Disposition: HOME Condition: Stable Discharge Details Attending Provider: Ronnell Bhandari Primary Care Provider: Brian Conklin Home Meds and New Rx's Prescriptions: No Action sertraline 50 mg tablet 50 mg PO DAILY RF: 0 cannabidiol 100 mg/mL solution 60 mg PO DAILY RF: 0 metoprolol succinate 25 mg tablet extended release 24 hr 25 mg PO BID RF: 0 multivitamin,tx-minerals Tablet 1 tab PO DAILY RF: 0 aspirin [Aspir-81] 81 mg Tablet,Delayed Release (Dr/Ec) 81 mg PO DAILY RF: 0 Discharge Instructions Additional Instructions: Lee to legbag Follow up 2 to 3 days for catheter removal Followup to review pathology 7 to 14 days Activity:: Activity as Tolerated Shower/Bathe:: 24 hours Diet:: As Tolerated Discharge Orders Discharge Orders: Discharge Order (Routine); Ordered 08/30/20 Ordered By: Ronnell Bhandari DS: Diagnosis Discharge Diagnosis (1) Bladder cancer: Status: Acute
--- NOTE | 2020-08-30 15:51 | W.PM.OP ---
Date of service: 08/30/20 Time of Service: 15:51 Operative Note Operative Note DATE OF PROCEDURE: 08/30/20 PRE-OP DIAGNOSIS: Bladder tumor POST-OP DIAGNOSIS: same SURGEON: Ronnell Bhandari ANESTHESIA: other (General without intubation) ESTIMATED BLOOD LOSS: 5 PATHOLOGY: other (bladder tumor) COMPLICATIONS: None Patient was transported to: same day Patient's condition: stable Implants: 16 serbian dukes with 10 cc in balloon Indications: Recurrent bladder tumor Findings: 2 cm papillary tumor right anterior bladder wall Procedure Description: The patient was brought to the operating room on 08/30/2020. After successful induction of general anesthesia without intubation, he was placed in the dorsal lithotomy position. His genitalia was prepped and draped. 2% Xylocaine jelly was instilled into the urethra to act as a local anesthetic. A 26 [place] resectoscope sheath was passed through the urethra into the bladder. The 30 degree lens and visual obturator were utilized to inspect the urethral and prostatic urethra mucosa. The pendulous, bulbous and membranous urethra was appeared normal with no strictures. The prostatic urethra showed some lateral lobe enlargement but no papillary lesions. Once the bladder was entered, we identified the previously seen 2 cm papillary lesion at the right anterior bladder wall. We then used an Locish resectoscope to remove this area and cauterized the surrounding mucosa. The resected tissue was evacuated and sent to pathology for permanent section. The bladder was then filled with irrigant. A 16 [place] Dukes catheter was passed through the urethra into the bladder. The catheter balloon was inflated with 10 cc of sterile water and the catheter was hooked to gravity drainage. The patient tolerated this procedure well. He was taken back to the day surgery unit in stable condition.
[2020-08-30] MEDS: Phenazopyridine 200 MG TAB PO (16:33)
[2020-08-30 16:40] VITALS: BP 151/77; PULSE 70; RESP 16; TEMP 36.3; O2SAT 97
== END 2020-08-30 17:30 | disposition home or self-care (01) ==
PROVIDERS: PCP Internal Medicine; Visit Provider Urology
PROC: 0TBB8ZZ Excision of Bladder, Via Natural or Artificial Opening Endoscopic (ICD-10-PCS; CPT 52234; principal; 2020-08-30 12:30)
DX: N32.89 Other specified disorders of bladder (principal); C67.1 Malignant neoplasm of dome of bladder
CPT/HCPCS: 52234; 88305; NC; J0690; J2001

== ENCOUNTER → 2020-09-21 14:49 | Outpatient (BNVA) | payer MEDICARE, SELFPAY | PROVIDERS: PCP Internal Medicine; Referring Provider Internal Medicine; Visit Provider Urology | DX: C67.1 Malignant neoplasm of dome of bladder (principal) | CPT/HCPCS: 99212 ==

== ENCOUNTER → 2020-10-19 11:24 | Outpatient (BNVA) | payer MEDICARE, SELFPAY | PROVIDERS: PCP Internal Medicine; Referring Provider Internal Medicine; Visit Provider Internal Medicine Cardiovascular Disease | DX: R00.1 Bradycardia, unspecified (principal); I48.0 Paroxysmal atrial fibrillation; I47.1 Supraventricular tachycardia; I08.0 Rheumatic disorders of both mitral and aortic valves; J44.9 Chronic obstructive pulmonary disease, unspecified; I10 Essential (primary) hypertension; Z87.891 Personal history of nicotine dependence | CPT/HCPCS: 99214; 99443 ==

== ENCOUNTER → 2020-10-22 08:52 | Outpatient (BNVA) | payer MEDICARE, SELFPAY | PROVIDERS: PCP Internal Medicine; Referring Provider Internal Medicine; Visit Provider Urology | DX: C67.1 Malignant neoplasm of dome of bladder (principal) | CPT/HCPCS: 51720; 81003; 99212; J9031; J9214 ==

== ENCOUNTER → 2020-12-10 11:12 | Outpatient (BNVA) | payer MEDICARE, SELFPAY | PROVIDERS: PCP Internal Medicine; Referring Provider Internal Medicine; Visit Provider Urology | DX: R00.1 Bradycardia, unspecified (principal); C67.1 Malignant neoplasm of dome of bladder | CPT/HCPCS: 52000; 81003; 99212; 99215 ==

== ENCOUNTER 2020-12-30 00:45 | Outpatient (CLI) | payer MEDICARE, SELFPAY ==
--- NOTE | 2020-12-30 | DI.US_ITS ---
EXAM: US ABDOMEN CLINICAL HISTORY: F/U HEP C,B18.2 TECHNIQUE: Ultrasound abdomen performed using standard protocol. COMPARISON: CT CT ABDOMEN PELVIS WO/W from 12/17/[address] ABDOMEN PELVIS WO/W from 12/17/2018 US US ABDOMEN from 11/07/2019 FINDINGS: LIVER: Normal size and echogenicity. Stable hyperechoic area measuring 4 cm in greatest dimension in the anterior right lobe of the liver, peripherally. Additional 2 centimeter hyperechoic lesion post eriorly in the right lobe. A 3rd lesion seen on previous CT adjacent to the gallbladder is not well depicted on the current exam but appears grossly unchanged in size at 18 millimeters. GALLBLADDER: No evidence of cholelithiasis. No evidence of wall thickening. No pericholecystic fluid identified. SRIVASTAVA'S SIGN: Negative. BILIARY SYSTEM: No intrahepatic or extrahepatic biliary ductal dilation. KIDNEYS: Kidneys are symmetric in size. No evidence of renal calculi. No evidence of hydronephrosis. Several small bilateral cysts are identified. PANCREAS: Normal where visualized. SPLEEN: Not enlarged. Incidental calcifications. ABDOMINAL AORTA AND IVC: Visualized portions normal caliber. ASCITES: None seen. IMPRESSION: Stable appearance of hyperechoic liver lesions, consistent with angiomas. Overall normal liver echog enicity and size. DATA REPOSITORY:
== END 2020-12-30 01:05 ==
PROVIDERS: PCP Internal Medicine; Visit Provider Internal Medicine
DX: B18.2 Chronic viral hepatitis C (principal); R93.2 Abnormal findings on diagnostic imaging of liver and biliary tract; R00.1 Bradycardia, unspecified
CPT/HCPCS: 93246; 76700

== ENCOUNTER 2020-12-30 02:16 | Outpatient (CLI) | payer MEDICARE, SELFPAY ==
--- NOTE | 2021-01-21 08:38 | W.ZIOMONITOR ---
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 Average heart rate was 70, minimum was 39, maximum 143. There were rare to occasional ventricular ectopic beats There were frequent atrial premature beats, 13% of total There were multiple self-limited atrial runs, supraventricular tachycardia. The longest of these lasted 48 beats. Patient symptoms did not correspond to any dysrhythmia There was no atrial fibrillation, no high-grade AV block, no pauses greater than 3 seconds
== END 2020-12-30 02:17 | disposition home or self-care (01) ==
LOC: RT 02:16
PROVIDERS: PCP Internal Medicine; Visit Provider Internal Medicine
DX: R00.1 Bradycardia, unspecified (principal)
CPT/HCPCS: 93246

== ENCOUNTER 2021-01-21 08:38 | Outpatient (CLI) | payer MEDICARE, SELFPAY | END 2021-01-21 08:39 | LOC: CARDO 01-25 08:53 | PROVIDERS: PCP Internal Medicine; Referring Provider Internal Medicine; Visit Provider Internal Medicine Cardiovascular Disease | DX: R00.1 Bradycardia, unspecified (principal); I49.3 Ventricular premature depolarization; I49.1 Atrial premature depolarization; I47.1 Supraventricular tachycardia | CPT/HCPCS: 93248 ==

== ENCOUNTER → 2021-01-24 12:42 | Outpatient (BNVA) | payer MEDICARE, SELFPAY | PROVIDERS: PCP Internal Medicine; Referring Provider Internal Medicine; Visit Provider Urology | DX: C67.1 Malignant neoplasm of dome of bladder (principal) | CPT/HCPCS: 51720; 81003; 99212; J9030; J9214 ==

== ENCOUNTER → 2021-03-03 12:37 | Outpatient (BNVA) | payer MEDICARE, SELFPAY | PROVIDERS: PCP Internal Medicine; Referring Provider Internal Medicine; Visit Provider Urology | DX: C67.1 Malignant neoplasm of dome of bladder (principal) | CPT/HCPCS: 52000; 81003; 99213 ==

== ENCOUNTER 2021-03-03 13:47 | Outpatient (REF) | payer MEDICARE, SELFPAY ==
--- NOTE | 2021-03-03 13:00 | PAPNONF_PTH ---
PATIENT: Galo So V LOC: [facility]AREN U#:[id number] AGE/SX: 75/M ROOM: RE03/03/[address]: Ronnell Bhandari MD : 1945 BED: DIS: 03/03/2021 SPEC #: [id number] RECD: 03/03/21 17:32 STATUS: ILENE REQ #: [id number] HOLLY: 03/03/21 13:[address]: Ronnell Bhandari DEPT: [facility] Cytology RECD BY: Chinyere Hinson ENTERED: 03/03/21 17:34 SP TYPE: SHARMAINE NUÑEZ DR: Brian Conklin Tissues: 1 - BODY FLUID CYTO(SPUTUM/URINE)[facility] Procedures: BODY FLUID CYTO(URINE/SPUTUM) Comments: [id number] (TOTAL VOLUME = 40 ml's) (40 ml's URINE & 40 ml's CYTOLYT ADDED)
== END 2021-03-03 13:48 | disposition home or self-care (01) ==
LOC: LBN 13:47
PROVIDERS: PCP Internal Medicine; Visit Provider Urology
DX: C67.1 Malignant neoplasm of dome of bladder (principal); R82.89 Other abnormal findings on cytological and histological examination of urine
CPT/HCPCS: 88104

== ENCOUNTER 2021-03-22 20:48 | Outpatient (REF) | payer MEDICARE, SELFPAY ==
[2021-03-22 22:06] LABS: Abs Immature Grans 0.03 10^3/uL (0.0-0.06); Absolute Basophil Count 0.04 10^3/uL (0.0-0.2); Absolute Eosinophil Count 0.05 10^3/uL (0.0-0.7); Absolute Lymphocyte Count 1.71 10^3/uL (1.2-3.4); Absolute Monocyte Count 0.85 10^3/uL (0.1-0.8); Absolute Neutrophil Count 5.05 10^3/uL (1.2-6.7); Basophils % 0.5; Eosinophils % 0.6; HCT 42.1 % (40.0-50.0); HGB 13.7 g/dL (13.5-17.5); Immature Grans % 0.4; Lymphocytes % 22.1; MCH 27.4 pg (27.0-33.0); MCHC 32.5 % (32.0-36.0); MCV 84.2 fL (80-95); MPV 10.6 fL (8.0-11.0); Neutrophils % 65.4; Nucleated RBC 0 %; Platelet Count 258 10^3/uL (130-400); RDW 14.2 % (11.8-14.1); RDW-SD 43.7 fL; WBC 7.73 10^3/uL (4.4-10.8)
[2021-03-22 23:25] LABS: ALT 29 U/L (16-63); AST 26 U/L (15-37); Albumin 4.6 g/dL (3.4-5.0); Alkaline Phosphatase 45 U/L (46-116); Anion Gap 9.3 mmol/L (3-11); BUN 23 mg/dL (7-18); Bilirubin, Total 0.5 mg/dL (0.2-1.0); CO2 28.7 mmol/L (21.0-32.0); Calcium 9.5 mg/dL (8.5-10.1); Chloride 103 mmol/L (98-107); Glucose 98 mg/dL (74-106); Potassium 4.8 mmol/L (3.5-5.1); Sodium 141 mmol/L (136-145); Total Protein 7.6 g/dL (6.4-8.2); Vitamin B12 559 pg/mL (193-986)
[2021-03-22 23:48] LABS: NT-proBNP 241 pg/mL (<300)
== END 2021-03-22 20:49 | disposition home or self-care (01) ==
LOC: NCHCN 20:48
PROVIDERS: PCP Internal Medicine; Visit Provider Internal Medicine
DX: R53.83 Other fatigue (principal); R63.4 Abnormal weight loss
CPT/HCPCS: 80053; 82607; 83880; 84443; 85025

== ENCOUNTER → 2021-04-15 08:28 | Outpatient (BNVA) | payer MEDICARE, SELFPAY | PROVIDERS: PCP Internal Medicine; Referring Provider Internal Medicine; Visit Provider Urology | DX: C67.1 Malignant neoplasm of dome of bladder (principal) | CPT/HCPCS: 51720; 81003; 99213; J9030; J9031; J9214 ==

== ENCOUNTER → 2021-04-29 11:46 | Outpatient (BNVA) | payer MEDICARE, SELFPAY | PROVIDERS: PCP Internal Medicine; Referring Provider Internal Medicine; Visit Provider Internal Medicine Cardiovascular Disease | DX: I47.1 Supraventricular tachycardia (principal); J44.9 Chronic obstructive pulmonary disease, unspecified; I08.0 Rheumatic disorders of both mitral and aortic valves; I10 Essential (primary) hypertension; Z79.899 Other long term (current) drug therapy | CPT/HCPCS: 99214; 99213 ==

== ENCOUNTER → 2021-05-27 13:05 | Outpatient (BNVA) | payer MEDICARE, SELFPAY | PROVIDERS: PCP Internal Medicine; Referring Provider Internal Medicine; Visit Provider Urology | DX: C67.1 Malignant neoplasm of dome of bladder (principal) | CPT/HCPCS: 52000; 81003 ==

== ENCOUNTER 2021-05-27 14:06 | Outpatient (REF) | payer MEDICARE, SELFPAY ==
--- NOTE | 2021-05-27 13:30 | PAPNONF_PTH ---
PATIENT: Galo So V LOC: [facility] U#:[id number] AGE/SX: 75/M ROOM: RE05/27/[address]: Ronnell Bhandari MD : 1945 BED: DIS: 05/27/2021 SPEC #: [id number] RECD: 05/27/21 15:09 STATUS: ILENE REQ #: [id number] HOLLY: 05/27/21 13:[address]: Ronnell Bhandari [facility] RECD BY: Jana Albrecht ENTERED: 05/27/21 15:14 SP TYPE: SHARMAINE NUÑEZ DR: Brian Conklin Tissues: 1 - BODY FLUID CYTO(SPUTUM/URINE)[facility] Procedures: BODY FLUID CYTO(URINE/SPUTUM) Comments: [id number] (TOTAL VOLUME = 124 cc) (62cc URINE & 62 cc CYTOLYT ADDED)
== END 2021-05-27 14:07 | disposition home or self-care (01) ==
LOC: LBN 14:06
PROVIDERS: PCP Internal Medicine; Visit Provider Urology
DX: Z85.51 Personal history of malignant neoplasm of bladder (principal)
CPT/HCPCS: 88104

== ENCOUNTER → 2021-07-12 12:36 | Outpatient (BNVA) | payer MEDICARE, SELFPAY | PROVIDERS: PCP Internal Medicine; Referring Provider Internal Medicine; Visit Provider Urology | DX: C67.1 Malignant neoplasm of dome of bladder (principal); Z51.11 Encounter for antineoplastic chemotherapy | CPT/HCPCS: 51720; J9030; J9214 ==

== ENCOUNTER → 2021-08-30 12:34 | Outpatient (BNVA) | payer MEDICARE, SELFPAY | PROVIDERS: PCP Internal Medicine; Referring Provider Internal Medicine; Visit Provider Urology | DX: C67.1 Malignant neoplasm of dome of bladder (principal) | CPT/HCPCS: 52000; 81003 ==

== ENCOUNTER → 2022-01-27 10:27 | Outpatient (BNVA) | payer MEDICARE, SELFPAY | PROVIDERS: PCP Internal Medicine; Referring Provider Internal Medicine; Visit Provider Internal Medicine Cardiovascular Disease | DX: I48.0 Paroxysmal atrial fibrillation (principal); I47.1 Supraventricular tachycardia; R00.1 Bradycardia, unspecified; I35.0 Nonrheumatic aortic (valve) stenosis | CPT/HCPCS: 99214 ==

== ENCOUNTER 2022-03-03 02:02 | Outpatient (CLI) | payer MEDICARE, SELFPAY ==
--- NOTE | 2022-05-01 12:39 | W.CARDEVENT ---
Date of service: 05/01/22 Time of Service: 12:39 Cardiac Event Recorder Referring Provider:: Brian Conklin Indications:: Atrial fibrillation Cardiac Event Note: This is a 14-day cardiac event monitor, ordered for atrial fibrillation Predominant rhythm was sinus with an average heart rate of 76. Minimum was 51, maximum 152 There were rare ventricular ectopic beats There were frequent atrial premature beats comprising 25% of total. There were 2 episodes of supraventricular tachycardia that lasted 30 seconds to 2 minutes, consistent with paroxysmal atrial fibrillation rate 1 50-1 70. These were asymptomatic Patient's symptoms were reported that generally appeared to correspond to premature atrial contractions
== END 2022-03-03 02:03 | disposition home or self-care (01) ==
LOC: RT 02:03
PROVIDERS: PCP Internal Medicine; Visit Provider Internal Medicine
DX: C67.1 Malignant neoplasm of dome of bladder (principal); I48.91 Unspecified atrial fibrillation
CPT/HCPCS: 52000; 81003; 93246

== ENCOUNTER 2022-03-03 13:42 | Outpatient (REF) | payer MEDICARE, SELFPAY ==
--- NOTE | 2022-03-03 13:00 | PAPNONF_PTH ---
PATIENT: Galo So V LOC: KAREN U#:[id number] AGE/SX: 76/M ROOM: RE03/03/[address]: Ronnell Bhandari MD : 1945 BED: DIS: 03/03/2022 SPEC #: [id number] RECD: 03/03/22 17:36 STATUS: ILENE REQ #: [id number] HOLLY: 03/03/22 13:[address]: Ronnell Bhandari DEPT: [facility] Cytology RECD BY: Chinyere Hinson ENTERED: 03/03/22 17:36 SP TYPE: SHARMAINE NUÑEZ DR: Brian Conklin Tissues: 1 - BODY FLUID CYTO(SPUTUM/URINE)[facility] Procedures: BODY FLUID CYTO(URINE/SPUTUM) Comments: [id number] (TOTAL VOLUME = 80 ml) (40 ml URINE & 40 ml CYTOLYT ADDED IN 2 CONTAINERS)
== END 2022-03-03 13:43 | disposition home or self-care (01) ==
LOC: LBN 13:42
PROVIDERS: PCP Internal Medicine; Visit Provider Urology
DX: Z85.51 Personal history of malignant neoplasm of bladder (principal)
CPT/HCPCS: 88104

== ENCOUNTER → 2022-03-28 01:05 | Outpatient (CLI) | payer MEDICARE, SELFPAY ==
--- NOTE | 2022-03-28 10:30 | DI.US_ITS ---
APPROVED REPORT EXAM: Comprehensive 2D, Doppler, and color-flow Echocardiogram Patient Location: Out-Patient Penology Professor: Carlie Boston RDCS (AE) Indications: Paroxysmal atrial fibrillation, Murmur, Tachycardia Other Information Study Quality: Adequate Conclusion Normal left ventricular wall thickness and chamber size. Estimated ejection fraction is 60%. Wall m otion is normal Normal right ventricular size and systolic function Both atria are normal in size Aortic valve is calcified and probably trileaflet. There is no aortic stenosis. There is mild aorti c regurgitation Moderate mitral annular calcification with mild mitral regurgitation Normal tricuspid valve with trace regurgitation. Estimated right ventricular systolic pressure is 25 mmHg Patient was in sinus rhythm with atrial premature beats throughout the study Wall motion Left Ventricle The left ventricle is normal size. The left ventricular systolic function is normal. The left ventric ular ejection fraction is within the normal range. There is normal left ventricular wall thickness. T here is normal LV segmental wall motion. There is no ventricular septal defect visualized. LVEF is 60 %. Right Ventricle The right ventricle is normal size. The right ventricular systolic function is normal. The RVSP is 25 .3mmHg. Atria The left atrium size is normal. The right atrium size is normal. The interatrial septum is intact wit h no evidence for an atrial septal defect. Aortic Valve Aortic valve is calcified. Aortic valve is probably trileaflet. No hemodynamically significant valvul ar aortic stenosis. Mild aortic regurgitation. Mitral Valve Moderate mitral annular calcification. No evidence of mitral valve stenosis. Mild mitral regurgitatio n. Tricuspid Valve The tricuspid valve is normal in structure. There is no tricuspid valve stenosis. Trace tricuspid reg urgitation. Pulmonic Valve The pulmonary valve is normal in structure. There is no pulmonic valvular stenosis. Trace pulmonic re gurgitation. Great Vessels The aortic root is normal in size. Ascending aorta is not well visualized. Aortic arch is normal in c aliber. IVC is normal in size and collapses >50% with inspiration. Pericardium There is no pericardial effusion. 2D Dimensions IVSD d PLAX 0.95 cm M: 0.6-1.2 LV Vol A2C d MOD 115.7 mL LVPW d PLAX 0.97 cm M: 0.6 - 1.2 LV Vol A4C d MOD 107.7 mL LVID d PLAX 4.72 cm M: 4.2 - 5.8 LA vol/ BSA A2C s A-L 28.7 mL/m2 LVDs 3.05 cm M: 2.5 - 4.0 LA vol/ BSA A4C s A-L 12.4 mL/m2 Ao Root d 3.20 cm M: 3.1 - 3.7 LA Vol/ BSA Biplane s A-L 21.2 mL/m2 RA Area A4C 13.91 cm2 LA Area A4C s MOD 10.14 cm2 RA Vol/ BSA A4C s A-L 20.6 mL/m2 LA Area A2C s MOD 17.39 cm2 LV EF Teichholz 64.6 % LV EF A4C MOD 60.4 % LVEF (Casey's) 59.31 % M: 52 - 72 LV EF A2C MOD 61.1 % LV Volume 89.48 mL M: 62 - 150 LV EF Biplane MOD 59.3 % LV Volume Index 52.32 mL/m2 M: 34 - 74 SV 67.05 mL LV Vol Biplane MOD 113.1 mL SV Index 39.09 mL/m2 FS 35.25 % M-Mode TAPSE 2.15 cm (M/F) >1.7 LV Diastology MV E' medial 0.070 (>0.07 m/s) E/A Ratio 1.4 LV E/e MED 13.70 (<14) MV E Vmax 0.96 (0.4-1.3 m/s) MV E' lateral 0.056 (>0.1 m/s) MV A Vmax 0.70 (0.4-1.3 m/s) LV E/e LAT 17.00 (<14) MV E/A Ratio 1.29 MV E/E' medial 13.73 MV E/E' lateral 17.02 Aortic Valve LVOT Area 2.75 cm2 AoV Area Vmax 1.58 cm2 LVOT Vmax 1.23 m/s AoV Area/ BSA (Vmax) 0.92 cm2/m2 LVOT Mean Silvino. 0.79 m/s DEION Mean Silvino. 1.41 cm2 LVOT Peak Grad 6.0 mmHg DEION Mean Silvino. Index 0.82 cm2/m2 LVOT Mean Grad 3.0 mmHg AR DT 3491 msec LVOT VTI 0.266 m AR PHT 1012 msec LVOT Diam s 1.85 cm AoV Vmax 2.13 m/s Velocity Ratio 0.57 AoV Mean Silvino. 1.54 m/s AoV Peak Grad 18.2 mmHg LVOT SV 73.18 mL AoV Mean Grad 10.6 mmHg AoV VTI 0.411 m AoV Area VTI 1.78 cm2 AoV Area/ BSA (VTI) 1.04 cm/m2 Mitral Valve MV DT 263 (160-240 msec) MV PHT 76 msec MV Area PHT 2.89 cm2 MV VTI 0.284 m MV Area VTI 2.57 (4.0-6.0 cm2) Pulmonary Valve PV Vmax 1.14 (0.5-1.5 m/s) RVOT Peak Gr. 1.31 mmHg PV Peak Grad 5.2 mmHg RVOT Mean Gr. 0.65 mmHg PV Mean Grad 2.9 mmHg RVOT VTI 0.119 m PV VTI 0.258 m RVOT Vmax 0.57 m/s Tricuspid Valve TR Peak Grad 22.2 mmHg TR Vmax 2.36 m/s RA Pressure 3.00 mmHg RVSP (TR) 25.3 mmHg
== END ==
PROVIDERS: PCP Internal Medicine; Visit Provider Internal Medicine Cardiovascular Disease
DX: I47.1 Supraventricular tachycardia (principal); I48.0 Paroxysmal atrial fibrillation
CPT/HCPCS: 93306

== ENCOUNTER → 2022-04-07 00:49 | Outpatient (CLI) | payer MEDICARE, SELFPAY ==
--- NOTE | 2022-04-07 | DI.US_ITS ---
Exam(s) US ABDOMEN EXAM: US ABDOMEN CLINICAL HISTORY: CHRONIC HEP C B18.2 TECHNIQUE: Ultrasound abdomen performed using standard protocol. COMPARISON: US US ABDOMEN from 12/30/2020 FINDINGS: ABDOMINAL AORTA AND IVC: Visualized portions normal caliber. PANCREAS: Normal where visualized. LIVER: Normal. Hepatopedal flow in the Portal Vein. There is a stable 4 cm mass in the anterior aspec t of the right lobe of the liver. The 2 cm lesion in the posterior aspect of the right lobe appears stable. These were shown to be consistent with a hepatic hemangioma. No new hepatic masses are seen . GALLBLADDER:No evidence of cholelithiasis. No evidence of wall thickening. No pericholecystic fluid i dentified. BILIARY SYSTEM: Common bile duct measures < 7 mm. No intrahepatic biliary ductal dilation. SRIVASTAVA'S SIGN: Negative. KIDNEYS: Kidneys are symmetric in size. No evidence of renal calculi. No evidence of hydronephrosis. Stable bilateral renal cysts. SPLEEN: Not enlarged. ASCITES: None seen. IMPRESSION: 1. No change in appearance of the ultrasound of the abdomen since 12/30/2020. 2. Stable hepatic hemangiomas. DATA REPOSITORY:
== END ==
PROVIDERS: PCP Internal Medicine; Visit Provider Internal Medicine
DX: B18.2 Chronic viral hepatitis C (principal); D18.09 Hemangioma of other sites
CPT/HCPCS: 76700

== ENCOUNTER → 2022-04-28 09:54 | Outpatient (BNVA) | payer MEDICARE, SELFPAY | PROVIDERS: PCP Internal Medicine; Visit Provider Internal Medicine Cardiovascular Disease | DX: Z79.01 Long term (current) use of anticoagulants (principal); R01.1 Cardiac murmur, unspecified; I48.0 Paroxysmal atrial fibrillation | CPT/HCPCS: 99213 ==

== ENCOUNTER 2022-05-01 12:39 | Outpatient (CLI) | payer MEDICARE, SELFPAY | END 2022-05-01 12:40 | LOC: CARDO 05-03 11:26 | PROVIDERS: PCP Internal Medicine; Visit Provider Internal Medicine Cardiovascular Disease | DX: I48.91 Unspecified atrial fibrillation (principal); I47.1 Supraventricular tachycardia | CPT/HCPCS: 93248 ==

== ENCOUNTER 2022-05-31 09:42 | Outpatient (CLI) | payer MEDICARE, SELFPAY | END 2022-05-31 09:43 | disposition home or self-care (01) | LOC: DI.CARD 09:42 | PROVIDERS: PCP Internal Medicine; Visit Provider Internal Medicine Cardiovascular Disease | DX: R69 Illness, unspecified (principal) | CPT/HCPCS: 93010 ==

== ENCOUNTER 2022-06-13 22:40 | Outpatient (REF) | payer MEDICARE, SELFPAY ==
[2022-06-13 19:15] LABS: Abs Immature Grans 0.04 10^3/uL (0.0-0.06); Absolute Basophil Count 0.05 10^3/uL (0.0-0.2); Absolute Eosinophil Count 0.06 10^3/uL (0.0-0.7); Absolute Lymphocyte Count 1.48 10^3/uL (1.2-3.4); Absolute Monocyte Count 0.75 10^3/uL (0.1-0.8); Absolute Neutrophil Count 6.81 10^3/uL (1.2-6.7); Basophils % 0.5; Eosinophils % 0.7; HCT 41.1 % (40.0-50.0); HGB 13.4 g/dL (13.5-17.5); Immature Grans % 0.4; Lymphocytes % 16.1; MCH 28.2 pg (27.0-33.0); MCHC 32.6 % (32.0-36.0); MCV 87 fL (80-95); MPV 11.2 fL (8.0-11.0); Monocytes % 8.2; Neutrophils % 74.1; Platelet Count 274 10^3/uL (130-400); RBC 4.75 10^6/uL (4.36-5.78); WBC 9.19 10^3/uL (4.4-10.8)
[2022-06-13 19:40] LABS: ALT 37 U/L (16-63); AST 39 U/L (15-37); Alkaline Phosphatase 43 U/L (46-116); Amylase 78 U/L (25-115); Anion Gap 6.4 mmol/L (3-11); BUN 23 mg/dL (7-18); Bilirubin, Total 0.3 mg/dL (0.2-1.0); CO2 28.6 mmol/L (21.0-32.0); CREATININE 1.1 mg/dL (0.70-1.30); Chloride 103 mmol/L (98-107); Estimated GFR 69.14 (mL/min/1.73m2); Glucose 81 mg/dL (74-106); Lipase 87 U/L (73-393); Potassium 4.1 mmol/L (3.5-5.1); Sodium 138 mmol/L (136-145); Total Protein 7.4 g/dL (6.4-8.2)
[2022-06-15 10:00] LABS: Hepatitis A Antibody IgM Negative (Negative); Hepatitis B Core Antibody Positive (Negative); Hepatitis B surface Ag Negative (Negative); Hepatitis C Ab w Rflx HCV PCR Reactive (Negative)
[2022-06-16 14:10] LABS: HCV RNA Qualitative Undetected (Undetected)
[2022-06-16 15:53] LABS: HBc IgM Ab, S Negative (Negative)
== END 2022-06-13 22:41 | disposition home or self-care (01) ==
LOC: NCHCN 22:40
PROVIDERS: PCP Internal Medicine; Visit Provider Nurse Practitioner Family
DX: R19.4 Change in bowel habit (principal)
CPT/HCPCS: 80053; 83690; 86704; 86709; 86803; 87340; 87522; 82150; 85025; 86705

== ENCOUNTER 2022-07-03 18:08 | Outpatient (REF) | payer MEDICARE, SELFPAY ==
[2022-07-03 22:58] LABS: Campylobacter PCR Negative (Negative); Salmonella PCR Negative (Negative); Shiga Toxin PCR Negative (Negative); Shigella/Enteroinvasive Ecoli Negative (Negative)
== END 2022-07-03 18:09 | disposition home or self-care (01) ==
LOC: NCHCN 18:08
PROVIDERS: PCP Internal Medicine; Visit Provider Internal Medicine
DX: R19.4 Change in bowel habit (principal); R63.4 Abnormal weight loss; F41.8 Other specified anxiety disorders; I48.0 Paroxysmal atrial fibrillation
CPT/HCPCS: 87329; 87493; 87505; 82272; 83630

== ENCOUNTER → 2022-09-01 12:32 | Outpatient (BNVA) | payer MEDICARE, SELFPAY | PROVIDERS: PCP Internal Medicine; Referring Provider Internal Medicine; Visit Provider Urology | DX: Z08 Encounter for follow-up examination after completed treatment for malignant neoplasm (principal); Z85.51 Personal history of malignant neoplasm of bladder | CPT/HCPCS: 52000; 81003 ==

== ENCOUNTER 2022-09-01 13:29 | Outpatient (REF) | payer MEDICARE, SELFPAY ==
--- NOTE | 2022-09-01 13:00 | PAPNONF_PTH ---
PATIENT: Galo So V LOC: N U#:[id number] AGE/SX: 77/M ROOM: RE09/01/[address]: Ronnell Bhandari MD : 1945 BED: DIS: 09/01/2022 SPEC #: [id number] RECD: 09/01/22 14:39 STATUS: ILENE REQ #: [id number] HOLLY: 09/01/22 13:[address]: Ronnell Bhandari DEPT: [facility] Cytology RECD BY: Chinyere Hinson ENTERED: 09/01/22 14:39 SP TYPE: SHARMAINE NUÑEZ DR: Brian Conklin Tissues: 1 - BODY FLUID CYTO(SPUTUM/URINE)[facility] Procedures: BODY FLUID CYTO(URINE/SPUTUM) Comments: [id number] (TOTAL VOLUME = 60 ml) (REFRIGERATED) (30 ml URINE & 30 ml CYTOLYT ADDED IN 2 CONTAINERS)
== END 2022-09-01 13:30 | disposition home or self-care (01) ==
LOC: LBN 13:29
PROVIDERS: PCP Internal Medicine; Visit Provider Urology
DX: C67.9 Malignant neoplasm of bladder, unspecified (principal)
CPT/HCPCS: 88104

== ENCOUNTER → 2022-10-30 09:41 | Outpatient (BNVA) | payer MEDICARE, SELFPAY | PROVIDERS: PCP Internal Medicine; Visit Provider Internal Medicine Cardiovascular Disease | DX: I48.0 Paroxysmal atrial fibrillation (principal); I35.0 Nonrheumatic aortic (valve) stenosis | CPT/HCPCS: 99213 ==

== ENCOUNTER → 2023-02-23 12:41 | Outpatient (BNVA) | payer MEDICARE, SELFPAY | PROVIDERS: PCP Internal Medicine; Referring Provider Internal Medicine; Visit Provider Urology | DX: C67.1 Malignant neoplasm of dome of bladder (principal) | CPT/HCPCS: 52000; 81003 ==

== ENCOUNTER 2023-02-23 14:24 | Outpatient (REF) | payer MEDICARE, SELFPAY ==
--- NOTE | 2023-02-23 13:15 | PAPNONF_PTH ---
PATIENT: Galo So V LOC: KAREN U#:[id number] AGE/SX: 77/M ROOM: RE02/23/[address]: Ronnell Bhandari MD : 1945 BED: DIS: 02/23/2023 SPEC #: [id number] RECD: 02/23/23 17:20 STATUS: ILENE REHenrique #: [id number] HOLLY: 02/23/23 13:[address]: Ronnell Bhandari DEPT: [facility] Cytology RECD BY: Chinyere Hinson ENTERED: 02/23/23 17:20 SP TYPE: SHARMAINE NUÑEZ DR: Brian Conklin Tissues: 1 - BODY FLUID CYTO(SPUTUM/URINE)[facility] Procedures: BODY FLUID CYTO(URINE/SPUTUM) Comments: [id number] (TV = 60 ml, 30 ml CYTOLYTE ADDED) (REFRIGERATED)
== END 2023-02-23 14:25 | disposition home or self-care (01) ==
LOC: LBN 14:24
PROVIDERS: PCP Internal Medicine; Visit Provider Urology
DX: Z85.51 Personal history of malignant neoplasm of bladder (principal)
CPT/HCPCS: 88104

== ENCOUNTER → 2023-04-30 01:22 | Outpatient (CLI) | payer MEDICARE, SELFPAY ==
--- NOTE | 2023-04-30 | DI.US_ITS ---
Exam(s) US ABDOMEN EXAM: US ABDOMEN CLINICAL HISTORY: CHRONIC HEP C B18.2 LIVER US TECHNIQUE: Ultrasound abdomen performed using standard protocol. COMPARISON: US US ABDOMEN from 04/07/2022 FINDINGS: LIVER: Normal size and echogenicity. Stable hemangioma anterior right measuring 3.4 cm on the curren t exam. Findings are within a limits measurement variability. Stable 2 centimeter lesion posterior right lobe, also consistent with hemangioma. No new lesions. GALLBLADDER: No evidence of cholelithiasis. No evidence of wall thickening. No pericholecystic fluid identified. SRIVASTAVA'S SIGN: Negative. BILIARY SYSTEM: No intrahepatic or extrahepatic biliary ductal dilation. KIDNEYS: Kidneys are symmetric in size. No evidence of renal calculi. No evidence of hydronephrosis. Simple renal cysts. No suspicious renal mass. Identified. PANCREAS: Normal where visualized. SPLEEN: Not enlarged. ABDOMINAL AORTA AND IVC: Visualized portions normal caliber. ASCITES: None seen. IMPRESSION: Stable appearance of hepatic hemangiomas. No suspicious lesions. DATA REPOSITORY:
== END ==
PROVIDERS: PCP Internal Medicine; Visit Provider Internal Medicine
DX: B18.2 Chronic viral hepatitis C (principal); D18.03 Hemangioma of intra-abdominal structures
CPT/HCPCS: 76700

== ENCOUNTER → 2023-05-14 09:17 | Outpatient (BNVA) | payer MEDICARE, SELFPAY | PROVIDERS: PCP Internal Medicine; Referring Provider Internal Medicine; Visit Provider Student in an Organized Health Care Education/Training Program | DX: G56.01 Carpal tunnel syndrome, right upper limb (principal) | CPT/HCPCS: 99214 ==

== ENCOUNTER 2023-06-07 16:15 | Outpatient (REF) | payer MEDICARE, SELFPAY ==
[2023-06-07 16:03] LABS: HCT 43.6 % (40.0-50.0); HGB 14.1 g/dL (13.5-17.5); MCH 27.5 pg (27.0-33.0); MCHC 32.3 % (32.0-36.0); MCV 85 fL (80-95); MPV 10.3 fL (8.0-11.0); Platelet Count 274 10^3/uL (130-400); RBC 5.13 10^6/uL (4.36-5.78); RDW 14.1 % (11.8-14.1); RDW-SD 43.8 fL; WBC 7.81 10^3/uL (4.4-10.8)
[2023-06-07 16:36] LABS: ALT 33 U/L (16-63); AST 28 U/L (15-37); Albumin 4.3 g/dL (3.4-5.0); Alkaline Phosphatase 52 U/L (46-116); Anion Gap 10.6 mmol/L (3-11); BUN 29 mg/dL (7-18); Bilirubin, Total 0.4 mg/dL (0.2-1.0); CO2 26.4 mmol/L (21.0-32.0); CREATININE 1.1 mg/dL (0.70-1.30); Calcium 9.5 mg/dL (8.5-10.1); Chloride 103 mmol/L (98-107); Estimated GFR 68.71 (mL/min/1.73m2); Glucose 86 mg/dL (74-106); Potassium 4.7 mmol/L (3.5-5.1); Sodium 140 mmol/L (136-145); Total Protein 7.5 g/dL (6.4-8.2)
== END 2023-06-07 16:16 | disposition home or self-care (01) ==
LOC: NCHCN 16:15
PROVIDERS: PCP Internal Medicine; Visit Provider Internal Medicine
DX: I10 Essential (primary) hypertension (principal); F41.8 Other specified anxiety disorders; R20.2 Paresthesia of skin; I48.0 Paroxysmal atrial fibrillation; B18.2 Chronic viral hepatitis C
CPT/HCPCS: 80053; 85027

== ENCOUNTER → 2023-06-22 00:59 | Outpatient (CLI) | payer MEDICARE, SELFPAY ==
[2023-06-22] MEDS: Normal Saline - Diluent 50 ML VIAL IJ (14:47)
[2023-06-22] MEDS: Omnipaque 350 MG/ML 100 ML BTL 70 ML IJ (14:47)
--- NOTE | 2023-06-22 14:51 | DI.CT_ITS ---
Exam(s) CT CHEST W EXAM: CT CHEST W CLINICAL HISTORY: HX OF BLADDER CA, Z85.51, PULMONARY NODULE LT LOWER LOBE, R91.1 TECHNIQUE: Imaging Protocol: Axial computed tomography images with coronal and sagittal reformatted images were created and reviewed CONTRAST MATERIAL: Intravenous: Omnipaque 350Contrast volume:70 mL. COMPARISON: CT CT ABDOMEN PELVIS WO/W from 12/17/[address] CHEST W from 07/02/2019 FINDINGS: The examination is limited due to patient motion artifact. Tracheobronchial tree: Patent where visualized. Pulmonary parenchyma: Emphysematous changes in the lungs. Bilateral apical scarring. Calcified gran uloma. The nodule in the lateral aspect of the left lower lobe is difficult to visualize but still p resent. It is unchanged. There is limited visualization due to the significant patient motion artif act. No new pulmonary nodules are seen. Mediastinum and Yoselin: No dominant adenopathy or fluid collection. The esophagus is unremarkable. Thyroid gland: Unremarkable. Pleura: No effusion or pneumothorax. Heart: The heart is not dilated. Coronary artery calcification and/or stents. No pericardial effusio n. Aorta: No aneurysmal dilatation. No evidence of dissection. Atherosclerosis is present. Pulmonary arteries: Pulmonary arteries were not adequately opacified for evaluation of pulmonary embo li. Upper abdomen: Evaluation of the upper abdomen is compromised due to the significant patient motion artifact. There is again seen a hemangioma in the right lobe of the liver. Renal cysts are present. No follow-up is recommended. Lymph nodes: Within normal limits. Bones: Within normal limits for the patient's age. Soft tissues: Unremarkable. IMPRESSION: 1. Examination is significantly limited by patient motion artifact. 2. Stable left lower lobe pulmonary nodule. No definite new pulmonary nodules are seen. 3. Stable findings in the chest and upper abdomen. RADIATION DOSE DELIVERED: 352.82mGy.cm Total DLP DATA REPOSITORY: All CT scans at this facility are submitted to the National Radiology Data Registry (NRDR) Dose Index Registry (DIR) with the [employer] (ACR). RADIATION OPTIMIZATION: All CT scans at this facility use at least one of these dose optimization te chniques: automated exposure control; mA and/or kV adjustment per patient size (includes targeted exa ms where dose is matched to clinical indication); or iterative reconstruction.
== END ==
PROVIDERS: PCP Internal Medicine; Visit Provider Internal Medicine
DX: R91.1 Solitary pulmonary nodule (principal); Z85.51 Personal history of malignant neoplasm of bladder
CPT/HCPCS: 71260; J3490

== ENCOUNTER 2023-08-21 20:59 | Outpatient (REF) | payer MEDICARE, SELFPAY ==
[2023-08-21 21:20] LABS: HCT 41.2 % (40.0-50.0); HGB 13.6 g/dL (13.5-17.5); MCH 28.2 pg (27.0-33.0); MCV 85 fL (80-95); MPV 10.1 fL (8.0-11.0); Platelet Count 242 10^3/uL (130-400); RBC 4.83 10^6/uL (4.36-5.78); RDW 14.6 % (11.8-14.1); RDW-SD 45.6 fL; WBC 7.47 10^3/uL (4.4-10.8)
[2023-08-21 21:40] LABS: Anion Gap 7.9 mmol/L (3-11); BUN 25 mg/dL (7-18); CO2 29.1 mmol/L (21.0-32.0); Calcium 9.4 mg/dL (8.5-10.1); Chloride 105 mmol/L (98-107); Estimated GFR 76.56 (mL/min/1.73m2); Glucose 87 mg/dL (74-106); NT-proBNP 117 pg/mL (<300); Potassium 4.5 mmol/L (3.5-5.1); Sodium 142 mmol/L (136-145)
== END 2023-08-21 21:00 | disposition home or self-care (01) ==
LOC: NCHCN 20:59
PROVIDERS: PCP Internal Medicine; Visit Provider Internal Medicine
DX: R06.09 Other forms of dyspnea (principal)
CPT/HCPCS: 80048; 85027; 83880

== ENCOUNTER 2023-09-02 10:47 | Emergency (ER) | payer MEDICARE, SELFPAY ==
[2023-09-02] VITALS (16 sets, daily range): BP systolic 158–191; BP diastolic 79–100; PULSE 49–60; RESP 12–16; TEMP 37; O2SAT 95–97
--- NOTE | 2023-09-02 12:15 | RT.EKG_ITS ---
APPROVED REPORT Exam: Resting ECG Reason for Exam: hypertension Patient Location: E HR:53 bpm ECG Measurements Heart Rate 53 AXIS SD 163 P 54 QRSd 101 QRS 36 QT 453 T 55 QTc 427 Conclusion Sinus bradycardia...rate< 60
[2023-09-02] MEDS: Lisinopril 10 MG TAB 5 MG PO (12:36)
[2023-09-02 12:37] LABS: Abs Immature Grans 0.02 10^3/uL (0.0-0.06); Absolute Basophil Count 0.05 10^3/uL (0.0-0.2); Absolute Eosinophil Count 0.04 10^3/uL (0.0-0.7); Absolute Lymphocyte Count 1.42 10^3/uL (1.2-3.4); Absolute Monocyte Count 0.74 10^3/uL (0.1-0.8); Basophils % 0.6; Eosinophils % 0.5; HCT 43.8 % (40.0-50.0); HGB 14.3 g/dL (13.5-17.5); Immature Grans % 0.2; Lymphocytes % 17.4; MCH 27.6 pg (27.0-33.0); MCHC 32.6 % (32.0-36.0); MCV 84 fL (80-95); MPV 9.8 fL (8.0-11.0); Monocytes % 9.1; Neutrophils % 72.2; Platelet Count 238 10^3/uL (130-400); RBC 5.19 10^6/uL (4.36-5.78); RDW-SD 43.4 fL; WBC 8.17 10^3/uL (4.4-10.8)
[2023-09-02 13:05] LABS: ALT 31 U/L (16-63); AST 30 U/L (15-37); Albumin 4.4 g/dL (3.4-5.0); Alkaline Phosphatase 46 U/L (46-116); Anion Gap 9.8 mmol/L (3-11); BUN 20 mg/dL (7-18); Bilirubin, Total 0.8 mg/dL (0.2-1.0); CO2 27.2 mmol/L (21.0-32.0); CREATININE 1.1 mg/dL (0.70-1.30); Calcium 9.4 mg/dL (8.5-10.1); Chloride 100 mmol/L (98-107); Estimated GFR 68.29 (mL/min/1.73m2); Glucose 111 mg/dL (74-106); Sodium 137 mmol/L (136-145); Total Protein 7.9 g/dL (6.4-8.2); Troponin I < 50 ng/L (<or=60)
--- NOTE | 2023-09-02 13:35 | ED.GENADUL_ITS ---
Discharge Plan Disposition Patient Disposition: Home Condition: Stable Discharge Details Clinical Impression: Asymptomatic hypertension Primary Care Provider: Brian Conklin ED Provider: Italo Sarabia Home Meds and New Rx's Prescriptions: New lisinopril 5 mg tablet 5 mg PO DAILY Qty: 30 0RF Continued metoprolol succinate 25 mg tablet extended release 24 hr 25 mg PO DAILY Xarelto 20 mg tablet 20 mg PO DAILY Qty: 90 3RF Rx Instructions: must administer with evening meal multivitamin,tx-minerals Tablet 1 tab PO DAILY escitalopram oxalate 10 mg tablet 10 mg PO DAILY Discharge Instructions Instructions: Hypertension (ED) Additional Instructions: He was seen today for elevated blood pressure. You were started on lisinopril which is an antihypertensive medication. Please call your doctor tomorrow to discuss ED presentation and treatment. Please arrange follow-up with your primary care physician. Return to the ER immediately for any worsening or new concerning symptoms. Referrals: Brian Conklin MD [Primary Care Provider] - Discharge Data Discharge Date/Time-TO BE ENTERED AT DEPARTURE: 09/02/23 14:14 Medical Decision Making 78-year-old male with history of intermittent hypertension in the past, aortic stenosis, presents with chief complaint of elevated blood pressure. Patient notes asymptomatic elevated blood pressure since checking this morning. Patient is on metoprolol for paroxysmal A-fib. EKG was reviewed and interpreted by me: Sinus bradycardia 53 bpm, nondiagnostic. Screening labs reviewed and kidney function normal. Patient was started on lisinopril. Blood pressure rechecked and has improved to now 169/58. Plan for discharge with plan for outpatient follow-up with his primary care physician later this week. Disposition decision was made weighing the risks and benefits of hospitalization versus outpatient treatment, the risk for further decompensation, and the patient's wishes. The patient was stable and requested discharge. Prior to discharge, my usual and customary return precautions were reviewed with the patient - this included follow-up instructions and reason to return to the emergency department if condition worsens, does not improve as expected, or other new concerns arise. Lab Data Lab results reviewed: Yes I reviewed the patient's lab results. Labs: Laboratory Tests Range/Units 09/02/23 12:26 WBC (4.4-10.8) 10^3/uL 8.17 RBC (4.36-5.78) 10^6/uL 5.19 Hgb (13.5-17.5) g/dL 14.3 Hct (40.0-50.0) % 43.8 MCV (80-95) fL 84 MCH (27.0-33.0) pg 27.6 MCHC (32.0-36.0) % 32.6 RDW (11.8-14.1) % 14.0 Plt Count (130-400) 10^3/uL 238 MPV (8.0-11.0) fL 9.8 Immature Gran % 0.2 Neutrophils % 72.2 Lymphocytes % 17.4 Monocytes % 9.1 Eosinophils % 0.5 Basophils % 0.6 Nucleated RBC % (0.0-0.3) % 0.0 Absolute Neutrophils (1.2-6.7) 10^3/uL 5.90 Absolute Lymphocytes (1.2-3.4) 10^3/uL 1.42 Absolute Monocytes (0.1-0.8) 10^3/uL 0.74 Absolute Eosinophils (0.0-0.7) 10^3/uL 0.04 Absolute Basophils (0.0-0.2) 10^3/uL 0.05 Sodium (136-145) mmol/L 137 Potassium (3.5-5.1) mmol/L 4.0 Chloride (98-107) mmol/L 100 Carbon Dioxide (21.0-32.0) mmol/L 27.2 Anion Gap (3-11) mmol/L 9.8 BUN (7-18) mg/dL 20 H Creatinine (0.70-1.30) mg/dL 1.1 Est GFR (CKD-EPI 2020) (mL/min/1.73m2) 68.29 Glucose (74-106) mg/dL 111 H Calcium (8.5-10.1) mg/dL 9.4 Total Bilirubin (0.2-1.0) mg/dL 0.8 AST (15-37) U/L 30 ALT (16-63) U/L 31 Alkaline Phosphatase (46-116) U/L 46 Troponin I (<or=60) ng/L < 50 Total Protein (6.4-8.2) g/dL 7.9 Albumin (3.4-5.0) g/dL 4.4 HPI General Mode of arrival: ambulatory . Date/Time Provider Initiated Documentation: 09/02/23 10:58 . Limitations to Documentation: no limitations . Information obtained by: patient . HPI Narrative: 78-year-old male with history of intermittent hypertension in the past, aortic stenosis, presents with chief complaint of elevated blood pressure. Patient notes elevated blood pressure since checking this morning. No associated chest pain, numbness/weakness, AGUERO, abdominal pain, or pain. Related Data Home Medications Medication Instructions Recorded Confirmed multivitamin,tx-minerals 1 tab PO DAILY 07/09/19 09/02/23 rivaroxaban 20 mg tablet (Xarelto) 20 mg PO DAILY #90 tabs 01/27/22 09/02/23 metoprolol succinate 25 mg 25 mg PO DAILY 10/30/22 09/02/23 tablet,extended release 24 hr escitalopram oxalate 10 mg tablet 10 mg PO DAILY 09/02/23 09/02/23 lisinopril 5 mg tablet 5 mg PO DAILY #30 tabs 09/02/23 Previous Rx's Medication Instructions Recorded rivaroxaban 20 mg tablet (Xarelto) 20 mg PO DAILY #90 tabs 01/27/22 lisinopril 5 mg tablet 5 mg PO DAILY #30 tabs 09/02/23 Allergies Allergy/AdvReac Type Severity Reaction Status Date / Time doxycycline AdvReac Intermediate Nausea Verified 09/02/23 10:55 General Stated Complaint: GenMedical GURVINDER: 3 Review of Systems All systems reviewed & are unremarkable except as noted in HPI and below Constitutional Constitutional: Denies fever(s) Cardiovascular Cardiovascular: Denies chest pain PFSH All Active Problems (Updated 09/02/23 @ 13:36 by Italo Sarabia MD) Asymptomatic hypertension (Acute) Aortic stenosis (Chronic) Bradycardia (Acute) Right inguinal hernia (Acute) Postop check (Acute) Systolic murmur (Acute) Cubital tunnel syndrome on right (Acute) Right carpal tunnel syndrome (Acute) Bladder cancer (Acute) Atrial ectopic tachycardia (Acute) Paroxysmal A-fib (Acute) 07/22/19: Pt denies dx. -BR Medical History Abdominal pain in male Anxiety with depression Chronic hepatitis C pt. denies this stated he had it treated 5 years ago, and is no longer detectable. Degenerative joint disease Ear deformity, acquired Fatigue History of degenerative joint disease Hx of bladder cancer Hx of supraventricular tachycardia Hypercholesterolemia Hypertension Left lower lobe pulmonary nodule pt. questions this Pulmonary nodule Shoulder pain Weight loss Surgical History H/O transurethral destruction of bladder lesion History of colonoscopy History of tonsillectomy S/P right inguinal hernia repair Social History Smoking/Tobacco Use Status: Former Tobacco Use Quit Date: 09/24/79 Smoking risk assessment performed?: Yes Alcohol Intake: current Alcohol type: beer Drug use: Daily Substance use type: marijuana Details: no alcohol for 4 months. Marijuana: t-1, vaped Current gender identity: male What type of physical activity do you participate in: walking Duration: 15-30 minutes/day Frequency: 3-4 times per week Do you feel safe at home: Yes Do you feel safe in your relationship?: Yes Exam Const General: cooperative and no acute distress HENMT Mouth: moist mucous membranes Eyes Conjunctivae: normal conjunctivae Sclera: normal sclerae Neck Neck: trachea midline and supple Resp Auscultation: clear to auscultation bilaterally, no rales, no rhonchi and no wheezes Cardio Rate: regular rate and not tachycardic Rhythm: regular rhythm GI Palpation: soft, not firm, no guarding, no masses, not rigid and nontender Skin General skin exam: no rashes or lesions noted Neuro General: patient alert, patient awake, patient oriented x3 and tone normal Cognition: normal cognition Speech: speech normal Motor: strength 5/5 throughout Sensory Exam: no sensory deficits noted Extrem General: no edema Psych Appearance: grossly normal Mental Status: mental status grossly normal Speech and Movement: speech and movement normal Course Vital Signs Vital signs: Vital Signs Temperature 37.0 C 09/02/23 10:53 Pulse 59 L 09/02/23 10:53 Respiratory Rate 15 09/02/23 10:53 Blood Pressure 191/90 H 09/02/23 10:53 Pulse Oximetry 95 09/02/23 10:53 Temperature 37.0 C 09/02/23 12:16 Temperature Source Temporal Artery Scan 09/02/23 10:53 Pulse 49 L 09/02/23 13:16 Pulse 54 L 09/02/23 12:20 Respiratory Rate 16 09/02/23 12:20 Respiratory Effort Normal 09/02/23 12:16 Respiratory Depth Normal 09/02/23 12:16 Respiratory Pattern Normal 09/02/23 12:16 Blood Pressure 167/83 H 09/02/23 13:16 Blood Pressure Mean 105 09/02/23 13:16 Blood Pressure Position Sitting 09/02/23 12:16 Pulse Oximetry 97 09/02/23 13:20 Oxygen Delivery Method Room Air 09/02/23 10:53 Oxygen Flow Rate 0 09/02/23 10:53 Pain Level 0 09/02/23 10:53 Lab/Test Results Lab/Test Results: Laboratory Tests Range/Units 09/02/23 12:26 WBC (4.4-10.8) 10^3/uL 8.17 RBC (4.36-5.78) 10^6/uL 5.19 Hgb (13.5-17.5) g/dL 14.3 Hct (40.0-50.0) % 43.8 MCV (80-95) fL 84 MCH (27.0-33.0) pg 27.6 MCHC (32.0-36.0) % 32.6 RDW (11.8-14.1) % 14.0 Plt Count (130-400) 10^3/uL 238 MPV (8.0-11.0) fL 9.8 Immature Gran % 0.2 Neutrophils % 72.2 Lymphocytes % 17.4 Monocytes % 9.1 Eosinophils % 0.5 Basophils % 0.6 Nucleated RBC % (0.0-0.3) % 0.0 Absolute Neutrophils (1.2-6.7) 10^3/uL 5.90 Absolute Lymphocytes (1.2-3.4) 10^3/uL 1.42 Absolute Monocytes (0.1-0.8) 10^3/uL 0.74 Absolute Eosinophils (0.0-0.7) 10^3/uL 0.04 Absolute Basophils (0.0-0.2) 10^3/uL 0.05 Sodium (136-145) mmol/L 137 Potassium (3.5-5.1) mmol/L 4.0 Chloride (98-107) mmol/L 100 Carbon Dioxide (21.0-32.0) mmol/L 27.2 Anion Gap (3-11) mmol/L 9.8 BUN (7-18) mg/dL 20 H Creatinine (0.70-1.30) mg/dL 1.1 Est GFR (CKD-EPI 2020) (mL/min/1.73m2) 68.29 Glucose (74-106) mg/dL 111 H Calcium (8.5-10.1) mg/dL 9.4 Total Bilirubin (0.2-1.0) mg/dL 0.8 AST (15-37) U/L 30 ALT (16-63) U/L 31 Alkaline Phosphatase (46-116) U/L 46 Troponin I (<or=60) ng/L < 50 Total Protein (6.4-8.2) g/dL 7.9 Albumin (3.4-5.0) g/dL 4.4 PAWSS Have you Been Recently Intoxicated or Drunk Within the Last 30 days?: Yes Have you Ever Experienced Previous Episodes of Alcohol Withdrawal?: No Have you ever Experienced Withdrawal Seizures?: No Have you ever Experienced Delirium Tremens(DT)s?: No Have you ever undergone Alcohol Rehabilitation Treatment (i.e, inpt ot outpatient treatment programs)?: No Have you ever Experienced Blackouts?: No Have you ever Combined Alcohol with other Downers within the last 90 days?: No Have you ever Combined Alcohol with any other Substance of Abuse during the last 90 days?: No Positive Blood Alcohol level on Presentation? [PCS.BAL]: No Evidence of Increased Autonomic Activity (i.e. HR>120, tremor, sweating, agitation, nausea)?: No Result: 1
== END 2023-09-02 14:14 | disposition home or self-care (01) ==
PROVIDERS: Emergency Provider Student in an Organized Health Care Education/Training Program; PCP Internal Medicine
DX: I10 Essential (primary) hypertension (principal); I48.0 Paroxysmal atrial fibrillation; R00.1 Bradycardia, unspecified; E78.00 Pure hypercholesterolemia, unspecified; Z79.01 Long term (current) use of anticoagulants
CPT/HCPCS: 36415; 80053; 93005; 99283; 84484; 85025; 93010

== ENCOUNTER → 2023-11-06 01:37 | Outpatient (CLI) | payer MEDICARE, SELFPAY ==
--- NOTE | 2023-11-06 | DI.US_ITS ---
APPROVED REPORT EXAM: Stress Echocardiogram Stress Nurse: Rosibel Alicea RN Ordering Provider: JASBIR KEYES, Contact Number: HR: 49 bpm BP: 152/84 mmHg Rhythm: Sinus bradycardia ICD: Chest pain 07.9 Indications: Chest pain with exertion Medical History Medical History: Aortic stenosis, bladder CA, paroxysmal afib, HTN, HLD, idiopathic OA, depression, a nxiety Medications: Lisinopril, metoprolol succinate, xarelto Allergies: Doxycycline Cardiac Risk Factors: Family hx, HTN, HLD, former smoker Previous Cardiac Procedures: None Pretest Chest Pain Characteristics: None Exercise History: Indeterminate Physical Disabilities: None Echo Enhancing Agent Comments: ? SVT, Dr. Donaldson in to evaluate patient. All symptoms resolved after recovery, patient left ambulatory in no apparent distress. Stress Test Details Test: Exercise stress testing was performed using a Dieter protocol. Rest Stress HR Resting HR Supine: 49 bpm Max Heart Rate (APMHR): 141 bpm Resting HR Standin bpm Target HR (85% APMHR): 120 bpm Max HR Achieved: 125 bpm % of APMHR: 89 Recovery HR: 61 bpm HR response to stress: Normal HR response to stress BP Resting BP Supine: 154/84 mmHg Resting BP Standin/82 mmHg Max BP: 190/82 mmHg Recovery BP: 130/80 mmHg BP response to stress: Normal blood pressure response to stress. ECG Resting ECG: Sinus Bradycardia Ectopy: None Stress ECG: Sinus Tachycardia ST Change: No significant ST segment changes noted Arrhythmia: Frequent PAC's Recovery ST Change: Upsloping ST depression, No significant ST segment changes noted Recovery Arrhythmia: Frequent PAC's, couplets, triplets, Occasional PVC's, bigeminy Clinical Reason for Termination: Fatigue, Dyspnea, Target HR Achieved Stress Symptoms: Fatigue, dyspnea Exercise duration: 5 min6 sec Highest Stage Reached: Stage 2: 2.5 mph at 12% grade. Exercise capacity: 6.81 METs Angina Score: None Graves Treadmill Score: 3.5 Rate Pressure Product: 35086 Stress ECG Conclusion 1. Electrocardiogram was normal 2. Patient exercised on the Dieter protocol and completed a workload of 6.8 METS 3. Peak heart rate achieved was 89% of predicted for age 4. There was no electrocardiographic evidence of myocardial ischemia 5. Stress echo showed appropriate augmented contractility of all segments. There was no echocardiog raphic evidence of myocardial ischemia 6. Atrial and ventricular ectopy was seen Graves Treadmill Score is 3.5 which is Moderate risk. Stress Test Summary STAGE Time (mins) Speed (mph) Grade (%) HR BP SYMPTOMS METS Supine 49 154/84 Standing 56 135/82 1 3 1.7 10 122 Moderate fatigue, Moderate dyspnea 4.6 1 min recovery 112 190/82 Moderate fatigue, Moderate dyspnea 3 min recovery 56 140/58 6 min recovery 61 130/80 Echo Findings The Pre-Stress Echocardiogram showed normal left ventricular contractility with an estimated Ejection Fraction of about 60%. The Peak-Stress Echocardiogram showed normal left ventricular contractility with an estimated Ejectio n Fraction of about 75%. Conclusion Electrocardiogram was normal Patient exercised on the Dieter protocol and completed a workload of 6.8 METS Peak heart rate achieved was 89% of predicted for age There was no electrocardiographic evidence of myocardial ischemia Stress echo showed appropriate augmented contractility of all segments. There was no echocardiograp hic evidence of myocardial ischemia Atrial and ventricular ectopy was seen Plain Graves Treadmill Score is 3.5 which is Moderate risk.
== END ==
PROVIDERS: PCP Internal Medicine; Visit Provider Internal Medicine
DX: Z85.51 Personal history of malignant neoplasm of bladder (principal); R91.1 Solitary pulmonary nodule
CPT/HCPCS: 93306; 93350; 93017

== ENCOUNTER → 2023-11-13 09:38 | Outpatient (BNVA) | payer MEDICARE, SELFPAY | PROVIDERS: PCP Internal Medicine; Visit Provider Internal Medicine Cardiovascular Disease | DX: I10 Essential (primary) hypertension (principal); I48.0 Paroxysmal atrial fibrillation; I35.0 Nonrheumatic aortic (valve) stenosis | CPT/HCPCS: 99213 ==

== ENCOUNTER 2024-02-07 14:55 | Outpatient (REF) | payer MEDICARE, SELFPAY ==
[2024-02-07 21:21] LABS: Abs Immature Grans 0.05 10^3/uL (0.0-0.06); Absolute Basophil Count 0.05 10^3/uL (0.0-0.2); Absolute Eosinophil Count 0.05 10^3/uL (0.0-0.7); Absolute Lymphocyte Count 1.89 10^3/uL (1.2-3.4); Absolute Monocyte Count 1.04 10^3/uL (0.1-0.8); Absolute Neutrophil Count 4.98 10^3/uL (1.2-6.7); Basophils % 0.6 %; Eosinophils % 0.6 %; HCT 44.6 % (40.0-50.0); HGB 14.3 g/dL (13.5-17.5); Immature Grans % 0.6 %; Lymphocytes % 23.4 %; MCH 28.1 pg (27.0-33.0); MCHC 32.1 % (32.0-36.0); MCV 88 fL (80-95); MPV 10.3 fL (8.0-11.0); Monocytes % 12.9 %; Neutrophils % 61.9 %; Platelet Count 279 10^3/uL (130-400); RBC 5.08 10^6/uL (4.36-5.78); WBC 8.06 10^3/uL (4.4-10.8)
[2024-02-07 21:44] LABS: ALT 35 U/L (16-63); AST 29 U/L (15-37); Albumin 4.4 g/dL (3.4-5.0); Alkaline Phosphatase 53 U/L (46-116); Anion Gap 8.3 mmol/L (3-11); BUN 19 mg/dL (7-18); Bilirubin, Total 0.7 mg/dL (0.2-1.0); CO2 28.7 mmol/L (21.0-32.0); CREATININE 1.1 mg/dL (0.70-1.30); Calcium 9.3 mg/dL (8.5-10.1); Chloride 103 mmol/L (98-107); Estimated GFR 68.29 (mL/min/1.73m2); Glucose 103 mg/dL (74-106); Potassium 5.1 mmol/L (3.5-5.1); Sodium 140 mmol/L (136-145); TSH (W/Ref FT4) 1.69 uIU/mL (0.36-3.74); Total Protein 7.8 g/dL (6.4-8.2)
== END 2024-02-07 14:56 | disposition home or self-care (01) ==
LOC: NCHCN 14:55
PROVIDERS: PCP Family Medicine; Visit Provider Family Medicine
DX: R63.4 Abnormal weight loss (principal)
CPT/HCPCS: 80053; 84443; 85025

== ENCOUNTER → 2024-02-29 13:15 | Outpatient (BNVA) | payer MEDICARE, SELFPAY | PROVIDERS: PCP Family Medicine; Visit Provider Urology | DX: C67.1 Malignant neoplasm of dome of bladder (principal) | CPT/HCPCS: 52000; 81003 ==

== ENCOUNTER 2024-02-29 14:40 | Outpatient (REF) | payer MEDICARE, SELFPAY ==
--- NOTE | 2024-02-29 14:30 | PAPNONF_PTH ---
PATIENT: Galo So V LOC: [facility] U#:[id number] AGE/SX: 78/M ROOM: RE02/29/[address]: Ronnell Bhandari MD : 1945 BED: DIS: 02/29/2024 SPEC #: [id number] RECD: 02/29/24 17:40 STATUS: ILENE REHenrique #: [id number] HOLLY: 02/29/24 14:[address]: Ronnell Bhandari DEPT: [facility] Cytology RECD BY: Chinyere Hinson ENTERED: 02/29/24 17:41 SP TYPE: SHARMAINE NUÑEZ DR: Alan Carlos Tissues: 1 - BODY FLUID CYTO(SPUTUM/URINE)[facility] Procedures: BODY FLUID CYTO(URINE/SPUTUM) Comments: [id number] (TV = 60 ml, 30 ml CYTOLYT ADDED) (REFRIGERATED)
== END 2024-02-29 14:41 | disposition home or self-care (01) ==
LOC: LBN 14:40
PROVIDERS: PCP Family Medicine; Visit Provider Urology
DX: C67.9 Malignant neoplasm of bladder, unspecified (principal)
CPT/HCPCS: 88104

== ENCOUNTER → 2024-05-20 10:58 | Outpatient (BNVA) | payer MEDICARE, SELFPAY | PROVIDERS: PCP Family Medicine; Visit Provider Internal Medicine Cardiovascular Disease | DX: I48.0 Paroxysmal atrial fibrillation (principal); I35.0 Nonrheumatic aortic (valve) stenosis | CPT/HCPCS: 99213 ==

== ENCOUNTER 2024-08-18 01:14 | Outpatient (CLI) | payer MEDICARE, SELFPAY ==
--- NOTE | 2024-08-18 13:30 | DI.US_ITS ---
APPROVED REPORT EXAM: Comprehensive 2D, Doppler, and color-flow Echocardiogram Patient Location: Out-Patient Java Developer: Carlie Boston RDCS (AE) Indications: Check aortic stenosis, nonrheumatic aortic stenosis Other Information Study Quality: Adequate Conclusion Normal left ventricular wall thickness and chamber size. Ejection fraction is 60%. Wall motion is n ormal Normal right ventricular size and function Both atria are normal in size Aortic valve is calcified and trileaflet. There is mild aortic stenosis. Peak gradient is 30, mean 19 mmHg. Calculated aortic valve area is 1.3 cm??. There is mild aortic regurgitation Mitral annular calcification, thickened mitral leaflets with mild mitral regurgitation Estimated right ventricular systolic pressure is 24 mmHg Wall motion Left Ventricle The left ventricle is normal size. The left ventricular systolic function is normal. The left ventric ular ejection fraction is within the normal range. There is normal left ventricular wall thickness. T here is normal LV segmental wall motion. There is no ventricular septal defect visualized. LVEF is 60 %. Right Ventricle The right ventricle is normal size. The right ventricular systolic function is normal. Atria The left atrium size is normal. The right atrium size is normal. The interatrial septum is intact wit h no evidence for an atrial septal defect. Aortic Valve Aortic valve is calcified. Mild aortic stenosis. Peak aortic valve gradient is 30.18mmHg. Highest rogers n aortic valve gradient is 18.62mmHg. Calculated DEION by the continuity equation is 1.3cm2. Mild aort ic regurgitation. Mitral Valve Mild to Moderate mitral annular calcification. No evidence of mitral valve stenosis. Mild mitral regu rgitation. Tricuspid Valve The tricuspid valve is normal in structure. There is no tricuspid valve stenosis. Trace tricuspid reg urgitation. The RVSP is 23.9 mmHg. Pulmonic Valve The pulmonary valve is normal in structure. There is no pulmonic valvular stenosis. Trace to mild pul anselmo regurgitation. Great Vessels The aortic root is normal in size. Ascending aorta is not well visualized. IVC is normal in size and collapses >50% with inspiration. Pericardium There is no pericardial effusion. 2D Dimensions IVSD d PLAX 0.80 cm M: 0.6-1.2 Ao Root d 3.22 cm M: 3.1 - 3.7 LVPW d PLAX 0.84 cm M: 0.6 - 1.2 LVID d PLAX 4.80 cm M: 4.2 - 5.8 LVDs 3.10 cm M: 2.5 - 4.0 LV EF Teichholz 64.7 % FS 35.41 % LV EDV (Teich) 107.6 mL LV ESV (Teich) 37.9 mL M-Mode TAPSE 2.97 cm (M/F) >1.7 Auto EF LV EDV A4C 96.8 mL LV EDV A2C 124.4 mL LV EDV BP 110.3 mL LV ESV A4C 40.2 mL LV ESV A2C 52.2 mL LV ESV BP 45.2 mL LVEF(%) A4C 58.4 % LVEF(%) A2C 58.0 % LVEF(%) BP 59.0 % LV SV A4C 56.6 ml LV SV A2C 72.2 ml LV SV BP 65.1 ml LV CO A4C 3.0 L/min LV CO A2C 3.9 L/min LV CO BP 3.4 L/min HR A4C 53.56 BPM HR A2C 53.56 BPM LV EDV Index (BP) LA Volume LA Length A4C 4.5 cm LA Length A2C 5.0 cm LA Area A4C s 15.65 cm2 LA Area A2C s 17.17 cm2 LA Vol A4C A-L 46.41 mL LA Vol A2C A-L 50.49 mL LA Vol Biplane A-L 50.9 mL LA Vol/BSA A4C A-L LA Vol/BSA A2C A-L LA Vol/BSA BP A-L 29.8 mL/m2 LA Vol A4C MOD 40.7 mL LA Vol A2C MOD 46.6 mL LA Vol BP MOD 45.4 mL LV Diastology MV E' medial 0.068 (>0.07 m/s) MV E Vmax 1.14 (0.4-1.3 m/s) MV E/E' MED 16.72 (<14) MV A Vmax 1.10 (0.4-1.3 m/s) MV E' lateral 0.095 (>0.1 m/s) E/A Ratio 1.0 MV E/E' LAT 12.05 (<14) MV E' Average 0.081 m/s MV E/E'(average) 14.01 Aortic Valve AoV Vmax 2.75 m/s LVOT Vmax 1.06 m/s AoV Peak Grad 41.6 mmHg LVOT Peak Grad 4.5 mmHg AoV Area (Vmax) 1.22 cm2 LVOT VTI 0.271 m AoV VTI 0.665 m LVOT Mean Grad 2.6 mmHg AoV Mean Silvino. 2.05 m/s LVOT SV 85.80 mL AoV Mean Grad 18.6 mmHg LVOT Diam s 2.00 cm AoV Area (VTI) 1.29 cm2 AV Regurg Peak Gr. 30.18 mmHg Velocity Ratio 0.39 AR Decel Bur[place]on 0.8m/sec2 AR DT 4366 msec AR PHT 1266 msec AR Vmax 3.64 m/s Mitral Valve MV DT 256 (160-240 msec) MV Vmax TIPS 0.98 m/s MV Mean Grad 1.4 (<2mmHg) MV VTI 0.349 m Pulmonary Valve PV Vmax 1.21 (0.5-1.5 m/s) RVOT Vmax 0.72 m/s PV Peak Grad 5.8 mmHg RVOT Peak Gr. 2.1 mmHg PV Mean Silvino 0.81 m/s RVOT VTI 0.163 m PV Mean Grad 3.0 mmHg RVOT Mean Gr. 1.1 mmHg Tricuspid Valve RA Pressure 3.00 mmHg TR Vmax 2.29 m/s TV S' 0.15 m/s TR Peak Grad 20.9 mmHg RVSP (TR) 23.9 mmHg
== END 2024-08-18 01:34 ==
LOC: DI 01:14
PROVIDERS: PCP Family Medicine; Visit Provider Internal Medicine Cardiovascular Disease
DX: I35.0 Nonrheumatic aortic (valve) stenosis (principal); I34.0 Nonrheumatic mitral (valve) insufficiency
CPT/HCPCS: 93306

== ENCOUNTER 2024-12-23 12:48 | Outpatient (REF) | payer MEDICARE, SELFPAY ==
[2024-12-23 16:14] LABS: Abs Immature Grans 0.02 10^3/uL (0.0-0.06); Absolute Basophil Count 0.06 10^3/uL (0.0-0.2); Absolute Lymphocyte Count 1.71 10^3/uL (1.2-3.4); Absolute Monocyte Count 0.65 10^3/uL (0.1-0.8); Absolute Neutrophil Count 4.54 10^3/uL (1.2-6.7); Basophils % 0.8 %; Eosinophils % 1.4 %; HCT 41.1 % (40.0-50.0); HGB 13.5 g/dL (13.5-17.5); Immature Grans % 0.3 %; Lymphocytes % 24.2 %; MCH 27.7 pg (27.0-33.0); MCHC 32.8 % (32.0-36.0); MCV 84 fL (80-95); MPV 10.9 fL (8.0-11.0); Monocytes % 9.2 %; Neutrophils % 64.1 %; Platelet Count 239 10^3/uL (130-400); RBC 4.87 10^6/uL (4.36-5.78); RDW-SD 43.2 fL; WBC 7.08 10^3/uL (4.4-10.8)
[2024-12-23 16:42] LABS: ALT 39 U/L (16-63); AST 35 U/L (15-37); Albumin 4.4 g/dL (3.4-5.0); Alkaline Phosphatase 45 U/L (46-116); Anion Gap 10.7 mmol/L (3-11); BUN 20 mg/dL (7-18); Bilirubin, Total 0.5 mg/dL (0.2-1.0); CO2 27.3 mmol/L (21.0-32.0); CREATININE 1.1 mg/dL (0.70-1.30); Calcium 9.6 mg/dL (8.5-10.1); Chloride 103 mmol/L (98-107); Estimated GFR 67.86 (mL/min/1.73m2); Glucose 111 mg/dL (74-106); Potassium 4.3 mmol/L (3.5-5.1); Sodium 141 mmol/L (136-145); Total Protein 7.4 g/dL (6.4-8.2)
== END 2024-12-23 12:49 | disposition home or self-care (01) ==
LOC: NCHCN 12:48
PROVIDERS: PCP Family Medicine; Visit Provider Family Medicine
DX: I10 Essential (primary) hypertension (principal)
CPT/HCPCS: 80053; 85025

== ENCOUNTER → 2024-12-30 14:13 | Outpatient (BNVA) | payer MEDICARE, SELFPAY | PROVIDERS: PCP Family Medicine; Visit Provider Internal Medicine Cardiovascular Disease | DX: Z79.01 Long term (current) use of anticoagulants (principal); I48.0 Paroxysmal atrial fibrillation; I35.0 Nonrheumatic aortic (valve) stenosis | CPT/HCPCS: 99214 ==

== ENCOUNTER 2025-03-03 14:45 | Emergency (ER) | payer MEDICARE, SELFPAY ==
[2025-03-03 14:47] VITALS: BP 143/83; PULSE 51; RESP 18; TEMP 36.7; O2SAT 96
--- NOTE | 2025-03-03 15:09 | ED.GENADUL_ITS ---
Discharge Plan Disposition Patient Disposition: Home Condition: Stable Discharge Details Clinical Impression: Hand lesion, Cellulitis of left hand Primary Care Provider: Alan Carlos ED Provider: Master Mc Home Meds and New Rx's Prescriptions: New clindamycin HCl 150 mg capsule 450 mg PO TID 7 Days Qty: 63 0RF Continued lisinopril 5 mg tablet 10 mg PO DAILY magnesium oxide 500 mg magnesium tablet 500 mg PO DAILY Xarelto 20 mg tablet 20 mg PO DAILY Qty: 90 3RF Rx Instructions: must administer with evening meal multivitamin,tx-minerals Tablet 1 tab PO DAILY metoprolol succinate 25 mg tablet extended release 24 hr 50 mg PO DAILY Discharge Instructions Additional Instructions: You can use the triamcinolone cream 2-3 times per day you can also take over the counter generic zyrtec or claritin if not improving within a week follow up with your primary care provider if you feel more ill or have new symptoms such as high fevers return to the emergency department HPI General Mode of arrival: ambulatory . Date/Time Provider Initiated Documentation: 03/03/25 14:50 . Limitations to Documentation: no limitations . Information obtained by: patient . History of Present Illness 79 year old M presents to the emergency department with the chief complaint of left hand lesion, described as mild, Quality is described as other (itching), and is localized to the left and upper extremity. and it has been constant. No relieving factors improve symptom(s), No exacerbating factors reported . Patient notes no other symptoms.. Patient did receive the following treatments prior to arrival, none Related Data Home Medications ?Medication ?Instructions ?Recorded ?Confirmed multivitamin,tx-minerals 1 tab PO DAILY 07/09/19 03/03/25 rivaroxaban 20 mg tablet (Xarelto) 20 mg PO DAILY #90 tabs 01/27/22 03/03/25 lisinopril 5 mg tablet 10 mg PO DAILY 11/13/23 03/03/25 metoprolol succinate 25 mg 50 mg PO DAILY 10/01/24 03/03/25 tablet,extended release 24 hr magnesium oxide 500 mg PO DAILY 12/30/24 03/03/25 clindamycin HCl 150 mg capsule 450 mg (3 x 150 mg) PO TID 7 days 03/03/25 #63 caps Previous Rx's ?Medication ?Instructions ?Recorded rivaroxaban 20 mg tablet (Xarelto) 20 mg PO DAILY #90 tabs 01/27/22 clindamycin HCl 150 mg capsule 450 mg (3 x 150 mg) PO TID 7 days 03/03/25 #63 caps Allergies Allergy/AdvReac Type Severity Reaction Status Date / Time doxycycline AdvReac Intermediate Nausea Verified 03/03/25 14:52 General Stated Complaint: RashLesion GURVINDER: 4 Review of Systems All systems reviewed & are unremarkable except as noted in HPI and below Constitutional Constitutional: Denies chills, Denies fever(s) and Denies weakness Cardiovascular Cardiovascular: Denies chest pain and Denies dyspnea Respiratory Respiratory: Denies cough and Denies dyspnea Gastrointestinal Gastrointestinal: Denies abdominal pain, Denies nausea and Denies vomiting Integumentary/Breasts Skin/Breast: Reports other (left hand lesion) Neurologic Neurologic: Denies weakness Exam Const General: no acute distress Orientation: alert HENMT Head: normal to inspection Ears: external ears normal General nose exam: external nose normal Mouth: moist mucous membranes Resp Effort & Inspection: normal respiratory effort and able to speak in complete sentences Cardio Rate: regular rate Skin Lesions: lesion noted Neuro General: patient alert and patient oriented x3 Extrem General: full ROM and capillary refill normal Course Vital Signs Vital signs: Vital Signs Temperature 36.7 C 03/03/25 14:47 Pulse 51 L 03/03/25 14:47 Respiratory Rate 18 03/03/25 14:47 Blood Pressure 143/83 H 03/03/25 14:47 Pulse Oximetry 96 03/03/25 14:47 Temperature 36.7 C 03/03/25 14:47 Temperature Source Oral 03/03/25 14:47 Pulse 51 L 03/03/25 14:47 Respiratory Rate 18 03/03/25 14:47 Blood Pressure 143/83 H 03/03/25 14:47 Pulse Oximetry 96 03/03/25 14:47 Oxygen Delivery Method Room Air 03/03/25 14:47 Oxygen Flow Rate 0 03/03/25 14:47 Pain Level 5 03/03/25 14:47 Medical Decision Making 79-year-old male with a history of A-fib on rivaroxaban, hypertension, who comes in with 2 to 3 days of a itching lesion on his left hand being on the webspace between the thumb and the index finger. He denies any known trauma, no fevers or chills otherwise feels well. He states the lesion is itchy. He has an area approximately half a centimeter in diameter that is white in color, and has 2 to 4 cm of mild surrounding erythema. He also has a mobile hard circular approximately 1 cm in diameter lesion soft tissue below this area, there is no fluctuance, has no drainage. There is no crepitus. He has full range of motion of the hand. I am going to treat the lesion as possible cellulitis with clindamycin and also have him start a topical triamcinolone which his says that he already has at the house for possible contact dermatitis. There is no findings to suggest abscess, neck Fash. He will follow-up with his PCP if he is not improving and return precautions given. Differential Diagnosis Differential Diagnosis: cellulitis, contact dermatitis, cyst Quality:SDOH Health Related Social Needs: No Data to Display PFSH All Active Problems (Updated 03/03/25 @ 15:10 by Master Mc MD) Cellulitis of left hand (Acute) Hand lesion (Acute) Atrial fibrillation (Chronic) Foreign body in ear (Acute) Aortic stenosis (Chronic) Bradycardia (Acute) Right inguinal hernia (Acute) Postop check (Acute) Systolic murmur (Acute) Cubital tunnel syndrome on right (Acute) Right carpal tunnel syndrome (Acute) Bladder cancer (Acute) Atrial ectopic tachycardia (Acute) Paroxysmal A-fib (Acute) 07/22/19: Pt denies dx. -BR Medical History Idiopathic osteoarthritis Over weight History of degenerative joint disease Shoulder pain Ear deformity, acquired Hx of supraventricular tachycardia Pulmonary nodule Hx of bladder cancer Anxiety with depression Abdominal pain in male Weight loss Fatigue Chronic hepatitis C pt. denies this stated he had it treated 5 years ago, and is no longer detectable. Degenerative joint disease Hypertension Left lower lobe pulmonary nodule pt. questions this Hypercholesterolemia Surgical History S/P adenoidectomy S/P right inguinal hernia repair History of colonoscopy History of tonsillectomy H/O transurethral destruction of bladder lesion Family History Brother Hypercholesterolemia Father Heart disease Mother Heart disease Social History Smoking/Tobacco Use Status: Former Tobacco Use Quit Date: 09/24/79 Smoking risk assessment performed?: Yes Alcohol Intake: current Alcohol type: beer Drug use: Daily Substance use type: marijuana Details: no alcohol for 4 months. Marijuana: t-1, vaped Current gender identity: male What type of physical activity do you participate in: walking Duration: 15-30 minutes/day Frequency: 3-4 times per week Do you feel safe at home: Yes Do you feel safe in your relationship?: Yes
== END 2025-03-03 15:23 | disposition home or self-care (01) ==
PROVIDERS: Emergency Provider Emergency Medicine; PCP Family Medicine
DX: L03.114 Cellulitis of left upper limb (principal); I10 Essential (primary) hypertension; E78.00 Pure hypercholesterolemia, unspecified; I48.0 Paroxysmal atrial fibrillation; Z79.01 Long term (current) use of anticoagulants; Z87.891 Personal history of nicotine dependence
CPT/HCPCS: 99283

== ENCOUNTER → 2025-04-14 12:35 | Outpatient (BNVA) | payer MEDICARE, SELFPAY | PROVIDERS: PCP Family Medicine; Visit Provider Urology | DX: C67.1 Malignant neoplasm of dome of bladder (principal); N40.1 Benign prostatic hyperplasia with lower urinary tract symptoms; R39.12 Poor urinary stream; R35.0 Frequency of micturition | CPT/HCPCS: 99214; 52000; 81002 ==

== ENCOUNTER 2025-04-14 13:31 | Outpatient (REF) | payer MEDICARE, SELFPAY ==
--- NOTE | 2025-04-14 13:15 | PAPNONF_PTH ---
PATIENT: Gaol So V LOC: [facility] U#:[id number] AGE/SX: 79/M ROOM: RE04/14/[address]: Ronnell Bhandari MD : [id number] BED: DIS: 04/14/2025 SPEC #: [id number] RECD: 04/14/25 18:16 STATUS: ILENE REQ #: [id number] HOLLY: 04/14/25 13:[address]: Ronnell Bhandari DEPT: [facility] Cytology RECD BY: Chinyere Hinson ENTERED: 04/14/25 18:16 SP TYPE: SHARMAINE NUÑEZ DR: Alan Carlos Tissues: 1 - BODY FLUID CYTO(SPUTUM/URINE)[facility] Procedures: BODY FLUID CYTO(URINE/SPUTUM) Comments: [id number] (TOTAL VOLUME = 80 ml) (REFRIGERATED) (40 ml URINE & 30 ml CYTOLYT ADDED IN 2 CONTAINERS)
== END 2025-04-14 13:32 | disposition home or self-care (01) ==
LOC: LBN 13:31
PROVIDERS: PCP Family Medicine; Visit Provider Urology
DX: C67.9 Malignant neoplasm of bladder, unspecified (principal)
CPT/HCPCS: 88104

== ENCOUNTER 2025-04-15 12:48 | Outpatient (REF) | payer MEDICARE, SELFPAY ==
[2025-04-15 15:19] LABS: Abs Immature Grans 0.19 10^3/uL (0.0-0.06); HCT 39.3 % (40.0-50.0); HGB 12.7 g/dL (13.5-17.5); Immature Grans % 1.4 %; MCH 27.9 pg (27.0-33.0); MCHC 32.3 % (32.0-36.0); MCV 86 fL (80-95); MPV 10.1 fL (8.0-11.0); Platelet Count 378 10^3/uL (130-400); RBC 4.55 10^6/uL (4.36-5.78); RDW 13.7 % (11.8-14.1); RDW-SD 43.6 fL; WBC 13.51 10^3/uL (4.4-10.8)
[2025-04-15 15:43] LABS: ALT 26 U/L (16-63); AST 25 U/L (15-37); Albumin 3.4 g/dL (3.4-5.0); Alkaline Phosphatase 68 U/L (46-116); Anion Gap 7.4 mmol/L (3-11); BUN 25 mg/dL (7-18); Bilirubin, Total 0.3 mg/dL (0.2-1.0); CO2 29.6 mmol/L (21.0-32.0); Calcium 9.2 mg/dL (8.5-10.1); Chloride 104 mmol/L (98-107); Estimated GFR 76.08 (mL/min/1.73m2); Glucose 104 mg/dL (74-106); NT-proBNP 154 pg/mL (<300); Potassium 5.4 mmol/L (3.5-5.1); Sodium 141 mmol/L (136-145); Total Protein 6.9 g/dL (6.4-8.2)
== END 2025-04-15 12:49 | disposition home or self-care (01) ==
LOC: NCHCN 12:48
PROVIDERS: PCP Family Medicine; Visit Provider Nurse Practitioner Family
DX: R05.1 Acute cough (principal)
CPT/HCPCS: 80053; 83880; 85025

== ENCOUNTER 2025-04-16 01:09 | Outpatient (CLI) | payer MEDICARE, SELFPAY ==
--- NOTE | 2025-04-16 | DI.RAD_ITS ---
Exam(s) XR CHEST 2V PA LATERAL EXAM: XR CHEST 2V PA LATERAL CLINICAL HISTORY: ACUTE COUGH,R05.1 TECHNIQUE: 2D digital imaging was performed. Two views. COMPARISON: CR from 01/23/[address] CHEST W from 06/22/2023 FINDINGS: HEART: Normal size. Aorta: Not dilated. PULMONARY VASCULATURE: Normal. MEDIASTINUM: Unremarkable. LUNGS: Hyperinflated. Mild upper lobe scarring. No focal infiltrates. PLEURAL SPACE: No pleural effusion or pneumothorax. BONE:Unremarkable for age. SOFT TISSUES: Unremarkable. IMPRESSION: No acute abnormality. DATA REPOSITORY: RADIATION DOSE DELIVERED:
== END 2025-04-16 01:29 ==
LOC: DI 01:09
PROVIDERS: PCP Family Medicine; Visit Provider Nurse Practitioner Family
DX: R05.1 Acute cough (principal)
CPT/HCPCS: 71046

== ENCOUNTER 2025-05-04 15:31 | Outpatient (REF) | payer MEDICARE, SELFPAY ==
[2025-05-04 14:45] LABS: Abs Immature Grans 0.02 10^3/uL (0.0-0.06); HCT 39.3 % (40.0-50.0); HGB 12.8 g/dL (13.5-17.5); Immature Grans % 0.3 %; MCH 28.1 pg (27.0-33.0); MCHC 32.6 % (32.0-36.0); MCV 86 fL (80-95); MPV 9.8 fL (8.0-11.0); Platelet Count 305 10^3/uL (130-400); RBC 4.55 10^6/uL (4.36-5.78); RDW 14.7 % (11.8-14.1); RDW-SD 46.4 fL; WBC 7.76 10^3/uL (4.4-10.8)
[2025-05-04 17:25] LABS: Anion Gap 8.8 mmol/L (3-11); BUN 23 mg/dL (7-18); CO2 28.2 mmol/L (21.0-32.0); Calcium 9.4 mg/dL (8.5-10.1); Chloride 103 mmol/L (98-107); Estimated GFR 67.86 (mL/min/1.73m2); Glucose 104 mg/dL (74-106); Potassium 4.4 mmol/L (3.5-5.1); Sodium 140 mmol/L (136-145)
== END 2025-05-04 15:32 | disposition home or self-care (01) ==
LOC: NCHCN 15:31
PROVIDERS: PCP Family Medicine; Visit Provider Family Medicine
DX: I10 Essential (primary) hypertension (principal)
CPT/HCPCS: 80048; 85025

== ENCOUNTER 2025-05-12 02:45 | Outpatient (CLI) | payer MEDICARE, SELFPAY ==
[2025-05-12] MEDS: Inhaler, Assist Device 1 EACH MC (09:13)
[2025-05-12] MEDS: Levalbuterol HFA 15 GM INH 4 PUFF IH (09:13)
--- NOTE | 2025-05-12 09:30 | W.PFT ---
Date of service: 05/12/25 Time of Service: 08:00 Pulmonary Function Test Result Indications: Dyspnea on exertion Impression 1. Good patient effort was noted. ATS standards for reproducibility were met. 2. Spirometry showed mild obstructive lung disease with an FEV1 of 113% (3.07 L) 3. Following the administration of a bronchodilator there was not a significant response 4. TLC and RV were elevated, consistent with air trapping 5. DLCO was 76%, consistent with a mild defect in alveolar gas exchange
--- NOTE | 2025-06-07 12:41 | SUR.INTRAOP ---
IN chart to obtain records for Broderick OLIVA
== END 2025-05-12 02:46 | disposition home or self-care (01) ==
LOC: RT 02:45
PROVIDERS: PCP Family Medicine; Visit Provider Internal Medicine Pulmonary Disease
DX: R06.09 Other forms of dyspnea (principal); J44.9 Chronic obstructive pulmonary disease, unspecified
CPT/HCPCS: 94060; 94726; 94729